=== PATIENT | female | born 1955 | race Caucasian/White ===

== ENCOUNTER 2020-05-13 16:16 | Outpatient (REF) | payer OTHER, SELFPAY | END 2020-05-13 16:17 | disposition home or self-care (01) | LOC: HO.LAB 16:16 | PROVIDERS: PCP Nurse Practitioner Family; Visit Provider Internal Medicine | DX: Z20.828 Contact with and (suspected) exposure to other viral communicable diseases (principal) | CPT/HCPCS: 87635 ==

== ENCOUNTER → 2020-08-26 10:36 | Outpatient (BNVA) | payer OTHER, SELFPAY | PROVIDERS: PCP Internal Medicine; Referring Provider Nurse Practitioner Family; Visit Provider Obstetrics & Gynecology ==

== ENCOUNTER 2020-10-19 07:58 | Outpatient (REF) | payer OTHER, SELFPAY ==
--- NOTE | ~2020-10-19 | MM_ITS ---
EXAMINATION: MM SCREENING DIGITAL BREAST TOMOSYNTHESIS, BILATERAL CLINICAL INFORMATION: Screening. Asymptomatic. The lifetime risk of breast cancer based on the Tyrer-Cuzick Model is 9.2%. COMPARISON: Mammography: August 05, 2019 and studies dating back to October 16, 2011 TECHNIQUE: Digital breast tomosynthesis is performed in both the craniocaudal and mediolateral oblique views along with computer-aided detection (CAD). Synthesized 2D images are generated from the tomosynthesis. FINDINGS: There are scattered areas of fibroglandular density (ACR BI-RADS breast composition Category b). There are no significant masses, abnormal calcifications, or other abnormalities. MM/MM tomosynthesis screening BI IMPRESSION: There are no significant changes from prior study. ASSESSMENT: BI-RADS 1: Negative RECOMMENDATION: Routine annual mammography screening. This patient's information was entered into a reminder system with a target due date for their next mammogram.
== END 2020-10-19 07:59 | disposition home or self-care (01) ==
LOC: HO.MAMMO 07:58
PROVIDERS: PCP Nurse Practitioner Family; Visit Provider Nurse Practitioner Family
DX: Z12.31 Encounter for screening mammogram for malignant neoplasm of breast (principal)
CPT/HCPCS: 77063; 77067

== ENCOUNTER 2021-11-06 09:48 | Outpatient (REF) | payer MEDICARE, MEDICAID, SELFPAY ==
--- NOTE | ~2021-11-06 | MM_ITS ---
EXAMINATION: MM SCREENING DIGITAL BREAST TOMOSYNTHESIS, BILATERAL CLINICAL INFORMATION: Screening. Asymptomatic. The lifetime risk of breast cancer based on the Tyrer-Cuzick Model is 7%. COMPARISON: Mammography: 10/19/2020, 08/05/2019, 03/28/2018, 03/01/2017 TECHNIQUE: Digital breast tomosynthesis is performed in both the craniocaudal and mediolateral oblique views along with computer-aided detection (CAD). Synthesized 2D images are generated from the tomosynthesis. FINDINGS: There are scattered areas of fibroglandular density (ACR BI-RADS breast composition Category b). There are no significant masses, abnormal calcifications, or other abnormalities. Parenchymal pattern is similar to prior studies. There are scattered shifting fibroglandular parenchymal densities overall similar to prior studies. The axilla and skin contours are unremarkable. MM/MM tomosynthesis screening BI IMPRESSION: No mammographic evidence of malignancy. ASSESSMENT: BI-RADS 1: Negative RECOMMENDATION: Routine annual mammography screening. This patient's information was entered into a reminder system with a target due date for their next mammogram.
== END 2021-11-06 09:49 | disposition home or self-care (01) ==
LOC: HO.MAMMO 09:48
PROVIDERS: Visit Provider Nurse Practitioner Family
DX: Z12.31 Encounter for screening mammogram for malignant neoplasm of breast (principal)
CPT/HCPCS: 77063; 77067

== ENCOUNTER 2022-03-16 08:45 | Outpatient (REF) | payer MEDICARE, MEDICAID, SELFPAY ==
--- NOTE | 2022-03-16 14:43 | MHC.AU.MED ---
Medical Clearance for Hearing Instrumentation Date: 03/16/22 Patient Name: Shikha Mcdonough Date of : 1955 Primary Care Provider: Referring Provider: Michelle Milian NP We have seen your patient on 03/16/22 and have determined that they are a candidate for amplification (See accompanying report). Specifically, they would benefit from: Hearing aid use in both ears There is a statute that addresses Medical Evaluation Requirements prior to fitting a patient with a hearing aid. According to [place] statute 265 CMR:6.03(1), (a) General. Except as provided in 265 CMR 6.03(1)(b), a watch crystal molder shall not sell a hearing aid unless the prospective user has presented to the watch crystal molder a written statement signed by a licensed physician that states that the patient's hearing loss has been medically evaluated and the patient may be considered a candidate for a hearing aid. The medical evaluation must have taken place within the preceding six months. Please note: Due to the [place] Statute referenced above, we cannot accept a signature other than that of a licensed physician. CHEMICAL INSTRUMENTATION OFFICER and PA signatures cannot be accepted. I am in agreement with the above recommendation. There is no medical contraindication for hearing instrumentation. Physician Signature Date Physician Name (Printed)
--- NOTE | 2022-03-20 12:58 | MHC.AU.ANO ---
Adult Audiological Evaluation Date of Visit: 03/16/22 Detasseler Used: Not Applicable Reason for Appointment: Shikha was referred for an audiologic evaluation due to increased hearing difficulties. Shikha reports she frequently asks for people to repeat what was said, particularly since people needed to start wearing face masks. Does patient feel they have a hearing loss?: Yes If Yes, Which Ear?: Both Ears When Was Hearing Difficulty First Noticed?: 2 years ago Has hearing been tested previously?: No Hearing Handicap Inventory: HHIE SCORE: 24 Based on HHIE score, patient has: Mild to moderate perceived hearing handicap Ear History: Ear used on the phone: Right Ear History of occupational noise exposure?: No History: No Medical History: Medical History: Thyroid Disease Medical History: Eye condition which requires Methotrexate injection, Medication List: Methotrexate, Levoxyl, Celebrex, Folic Acid Otoscopy: Right Ear: Unremarkable Left Ear: Unremarkable Tympanometry: Tympanometry performed due to: To assess integrity of the middle ear system Right Ear: Normal Middle Ear System (Type A) Left Ear: Normal Middle Ear System (Type A) Otoacoustic Emissions Frequency Range Used: 1.6-8 kHz Right Ear Results: Absent Emissions Analysis: Reduced/Absent emissions suggest cochlear dysfunction Left Ear Results: Absent Emissions Analysis: Reduced/Absent emissions suggest cochlear dysfunction Hearing Evaluation: Transducer(s) Used: Insert Earphones Bone Conduction Method: Conventional Audiometry Stimuli Used: Pure Tones Right Ear: Description of Hearing: Borderline normal hearing thresholds at 250 Hz, sloping to a moderately-severe high frequency sensorineural hearing loss Left Ear: Description of Hearing: Borderline normal hearing thresholds at 250 Hz, sloping to a moderately-severe high frequency sensorineural hearing loss Speech Recognition Threshold (SRT): Method Used: Monitored Live Voice Stimuli Used: Spondee Words Right Ear: 35 dB HL Left Ear: 35 dB HL Word Discrimination: Method: Recorded Lists Word Lists Used: NU-6 Right Ear: 92% at 75 dB HL Left Ear: 80% at 75 dB HL Interpretation of Results: Results indicate Shikha to have a significant high frequency hearing loss for both ears which causes her to not hear many sounds of speech and decreases her ability to understand speech. Based on the test results and Shikha's reported difficulties, binaural hearing aids are recommended. Recommendations: Trial with binaural amplification is recommended. Medical clearance from a physician is required before fitting. Hearing Aid Fitting will be scheduled when all materials arrive. Audiological re-evaluation in one year. Diagnosis: Primary Diagnosis: H90.3 Bilateral Sensorineural Hearing Loss Services Performed: Comprehensive Audiological Evaluation (CPT 36200) Diagnostic Otoacoustic Emissions (CPT 52214, 26+TC) Tympanometry (CPT 80687) Signature: Provider: Saray Cm, [facility]
--- NOTE | 2022-03-30 07:09 | MHC.AU.MED ---
Medical Clearance for Hearing Instrumentation Date: 03/20/22 Patient Name: Shikha Mcdonough Date of : 1955 Primary Care Provider: Referring Provider: Michelle Milian NP We have seen your patient on 03/20/22 and have determined that they are a candidate for amplification (See accompanying report). Specifically, they would benefit from: Hearing aid use in both ears There is a statute that addresses Medical Evaluation Requirements prior to fitting a patient with a hearing aid. According to [place] statute 265 CMR:6.03(1), (a) General. Except as provided in 265 CMR 6.03(1)(b), a teacher of the deaf/hard of hearing shall not sell a hearing aid unless the prospective user has presented to the teacher of the deaf/hard of hearing a written statement signed by a licensed physician that states that the patient's hearing loss has been medically evaluated and the patient may be considered a candidate for a hearing aid. The medical evaluation must have taken place within the preceding six months. Please note: Due to the [place] Statute referenced above, we cannot accept a signature other than that of a licensed physician. BILLING CUSTOMER SERVICE REPRESENTATIVE and PA signatures cannot be accepted. I am in agreement with the above recommendation. There is no medical contraindication for hearing instrumentation. Physician Signature Date Physician Name (Printed)
--- NOTE | 2022-03-30 07:27 | MHC.AU.HAS ---
Hearing Aid Evaluation Date of Visit: 03/16/22 Historical Information: Description of Hearing: Borderline normal low frequency, sloping to moderately-severe high frequency sensorineural hearing loss bilaterally. Current personal amplification information, if applicable: NONE Summary: Based on the degree of hearing loss and Shikha's reported and significant difficulty understanding speech, binaural hearing aids are recommended for improved communication. Hearing Aid Prescription: Based on the individual?s shared listening needs, communication environments, dexterity, desire for connectivity, and personal preferences, the following prescription for amplification has been made: Right ear: Pipe Inspector: Phonak Model: SoCore Energyeo P 70-R Battery Size: Rechargeable Color: Sand Beige Wildlife Forensic Geneticist: #2 M Type of Mold: Phonak Canal C-Shell Left ear:Left ear prescription to be same as Right Hearing Aid above: Pipe Inspector: Phonak Model: SoCore Energyeo P 70-R Battery Size: Rechargeable Color: Sand Beige Wildlife Forensic Geneticist: #2 M Type of Mold: Phonak Canal C-Shell Plan of Care: Patient wishes to purchase hearing aids as prescribed Action Taken/Action Needed:Earmold Impressions Taken Medical Clearance to be requested from PCP/ENT Hearing Instrument Fitting to be scheduled when materials arrive Primary Diagnosis: H90.3 Bilateral Sensorineural Hearing Loss Signature:Provider: Luigi Cm, [facility]
== END 2022-03-16 08:46 | disposition home or self-care (01) ==
LOC: HO.SH 08:45
PROVIDERS: Visit Provider Nurse Practitioner Family
DX: Z01.118 Encounter for examination of ears and hearing with other abnormal findings (principal); Z46.1 Encounter for fitting and adjustment of hearing aid; H90.3 Sensorineural hearing loss, bilateral
CPT/HCPCS: 92557; 92567; 92588; 92591; V5275

== ENCOUNTER 2022-05-11 09:19 | Outpatient (REF) | payer MEDICARE, MEDICAID, SELFPAY ==
--- NOTE | 2022-05-11 11:31 | MHC.AU.HFA ---
Hearing Instrument Fitting- Adult- Binaural Date of Visit: 05/11/22 Hearing Instruments Dispensed: Right Ear: Phonak Audeo P70-R SN: [id number] Color: Sand beige Repair Warranty: 07/17/25 Loss and Damage Warranty: 07/17/25 Service Plan: 05/11/2023 Battery Size: Rechargeable Residential Door Unit Installer: 1M Type of Mold: Canal C-Shell SN: [id number] Aaron: 07/18/2022 Type of Wax Guard: CeruStop Left Ear: Phonak Audeo P70-R SN: [id number] Color: Sand beige Repair Warranty: 07/17/2025 Loss and Damage Warranty: 07/17/2025 Service Plan: 05/11/2023 Battery Size: Rechargeable Residential Door Unit Installer: 1M Type of Mold: Canal C-Shell SN: [id number] Aaron: 07/18/2022 Type of Wax Guard: CeruStop Summary of Fitting: Shikha returned for a hearing aid fitting. Feedback assistant department manager and real ear measurements were performed. Gain level then set to 80% due to perceived loudness. Discussed care, use, and maintenance including charging, manually turning on/off, volume control, cleaning, and changing the wax guard. Practiced insertion and removal. Shikha had some difficulty inserting the ear molds but is motivated to practice. Explained acclimatization period and importance of consistent use. Shikha was grateful to have the hearing aids and seemed motivated to use them daily. Shikha did not want to pair the hearing aids to her cell phone at this time. Recommendations: A hearing instrument follow-up was scheduled. Please call our clinic with any questions or concerns. Maintain consistent use of binaural amplification. Diagnosis Code(s): Primary Diagnosis: H90.3 Bilateral Sensorineural Hearing Loss Signature: Provider: Eva Smith, [facility]
== END 2022-05-11 09:20 | disposition home or self-care (01) ==
LOC: HO.HAP 09:19
PROVIDERS: Visit Provider Internal Medicine
DX: Z46.1 Encounter for fitting and adjustment of hearing aid (principal); H90.3 Sensorineural hearing loss, bilateral
CPT/HCPCS: V5011; V5020; V5160; V5261; V5264

== ENCOUNTER 2022-05-28 10:18 | Outpatient (REF) | payer MEDICARE, MEDICAID, SELFPAY ==
--- NOTE | 2022-05-28 10:51 | MHC.AU.HFU ---
Hearing Instrument Follow-Up- Binaural Date of Visit: 05/28/22 Right Ear: Kedar Meyerseo P70-R SN: [id number] Color: Sand beige Repair Warranty: 07/17/25 Loss and Damage Warranty: 07/17/25 Service Plan: 05/11/2023 Battery Size: Rechargeable Rocket Scientist: 1M Type of Mold: Canal C-Shell SN: [id number] Aaron: 07/18/2022 Type of Wax Guard: CeruStop Dispensed By: [facility] Date of Fittin05/11/2022 Left Ear: Kedar Meyerseo P70-R SN: [id number] Color: Sand beige Repair Warranty: 07/17/2025 Loss and Damage Warranty: 07/17/2025 Service Plan: 05/11/2023 Battery Size: Rechargeable Rocket Scientist: 1M Type of Mold: Canal C-Shell SN: [id number] Aaron: 07/18/2022 Type of Wax Guard: CeruStop Dispensed By: [facility] Date of Fittin05/11/2022 Follow-Up Summary: Shikha reported that she loves her hearing aids. Data logging about 9 hours/day. No programming adjustments at this time as Shikha is happy with overall sound quality and perceived benefit. Advised at 80% gain level and can increase in the future for maximum benefit. Much better at insertion. Reviewed volume control use. Otherwise doing well with no other questions/concerns. Recommendations: Hearing instrument maintenance in 6 months, or sooner if needed. Please contact our clinic with any questions or concerns. Diagnosis Code(s): Primary Diagnosis: H90.3 Bilateral Sensorineural Hearing Loss Signature: Provider: Eva Smith, [facility]
== END 2022-05-28 10:19 | disposition home or self-care (01) ==
LOC: HO.HAP 10:18
PROVIDERS: Visit Provider Nurse Practitioner Family
DX: Z13.89 Encounter for screening for other disorder (principal)

== ENCOUNTER 2022-11-27 12:40 | Outpatient (REF) | payer MEDICARE, MEDICAID, SELFPAY ==
--- NOTE | 2022-11-27 13:28 | MHC.AU.HFU ---
Hearing Instrument Follow-Up- Binaural Date of Visit: 11/27/22 Right Ear: Kedar Meyerseo P70-R SN: [id number] Color: Sand beige Repair Warranty: 07/17/25 Loss and Damage Warranty: 07/17/25 Service Plan: 05/11/2023 Battery Size: Rechargeable Color: Sand Beige Tavern Operator: 1M Type of Mold: Canal C-Shell SN: [id number] Aaron: 07/18/2022 Type of Wax Guard: CeruStop Dispensed By: [facility] Date of Fittin05/11/2022 Left Ear: Kedar Meyerseo P70-R SN: [id number] Color: Sand beige Repair Warranty: 07/17/2025 Loss and Damage Warranty: 07/17/2025 Service Plan: 05/11/2023 Battery Size: Rechargeable Color: Sand Beige Tavern Operator: 1M Type of Mold: Canal C-Shell SN: [id number] Aaron: 07/18/2022 Type of Wax Guard: CeruStop Dispensed By: [facility] Date of Fittin05/11/2022 Follow-Up Summary: Shikha Mcdonough is here today for a hearing aid check. Overall Shikha is very happy with her hearing aids and notes improved hearing with them. Today she would like to review hearing aid cleaning, use of volume control and how to manually power off the hearing aids. Visual inspection revealed the wax guards were missing. I reviewed how to replace the wax guards and we practiced in office. I provided Shikha with a brush and microfiber cloth to use periodically to clean off the hearing aids. I then showed her how to manually power off the hearing aids with the volume down button. In [employer] I ensured volume control was enabled and we practiced using the volume control. Of note Shikha continues to be on 80% target gain and she finds that comfortable. She does not wish to have the gain increased. I reminded her that her previous audiogram is from 02/2022. An updated audiogram is recommended when change is noted. Additional follow-up when concerns arise. Diagnosis Code(s): Primary Diagnosis: H90.3 Bilateral Sensorineural Hearing Loss Signature: Provider: Saray Yee, [facility]
== END 2022-11-27 12:41 | disposition home or self-care (01) ==
LOC: HO.HAP 12:40
PROVIDERS: Visit Provider Nurse Practitioner Family
DX: Z13.89 Encounter for screening for other disorder (principal)

== ENCOUNTER → 2023-01-08 13:11 | Outpatient (BNVA) | payer MEDICARE, MEDICAID, SELFPAY | PROVIDERS: PCP Nurse Practitioner Family; Visit Provider Hospitalist | DX: J41.1 Mucopurulent chronic bronchitis (principal); R05.3 Chronic cough; R06.00 Dyspnea, unspecified | CPT/HCPCS: 94640; 99202 ==

== ENCOUNTER 2023-02-04 09:40 | Outpatient (REF) | payer MEDICARE, MEDICAID, SELFPAY ==
--- NOTE | ~2023-02-04 | MM_ITS ---
EXAMINATION: MM SCREENING DIGITAL BREAST TOMOSYNTHESIS, BILATERAL CLINICAL INFORMATION: Screening. Asymptomatic. The lifetime risk of breast cancer based on the Tyrer-Cuzick Model is 7%. COMPARISON: Mammography: This study is compared with prior exams dating back to 2018. TECHNIQUE: Digital breast tomosynthesis is performed in both the craniocaudal and mediolateral oblique views along with computer-aided detection (CAD). Synthesized 2D images are generated from the tomosynthesis. FINDINGS: There are scattered areas of fibroglandular density (ACR BI-RADS breast composition Category b). There are no significant masses, abnormal calcifications, or other abnormalities. MM/MM tomosynthesis screening BI IMPRESSION: No mammographic evidence of malignancy. ASSESSMENT: BI-RADS BI-RADS 1 - Negative RECOMMENDATION: Routine annual mammography screening. 1 year F/U This examination should not preclude the clinical evaluation of a suspicious palpable abnormality. This patient's information was entered into a reminder system with a target due date for their next mammogram.
== END 2023-02-04 09:41 | disposition home or self-care (01) ==
LOC: HO.MAMMO 09:40
PROVIDERS: PCP Nurse Practitioner Family; Visit Provider Nurse Practitioner Family
DX: Z12.31 Encounter for screening mammogram for malignant neoplasm of breast (principal)
CPT/HCPCS: 77063; 77067

== ENCOUNTER → 2023-02-04 10:00 | Outpatient (BNV) | payer MEDICARE, MEDICAID, SELFPAY | PROVIDERS: PCP Nurse Practitioner Family; Visit Provider Radiology Diagnostic Radiology | DX: Z12.31 Encounter for screening mammogram for malignant neoplasm of breast (principal) | CPT/HCPCS: 77063; 77067 ==

== ENCOUNTER 2023-03-19 12:58 | Outpatient (AMB) | payer MEDICARE, SELFPAY ==
--- NOTE | 2023-03-19 13:15 | MHC.OFFVIS ---
Intake Vital Signs 03/19/23 13:16 Height 5 ft 10 in Weight 243 lb 9.773 oz BMI 35.0 Pulse 85 Pulse Source Pulse Oximeter Pulse Oximetry (%) 94 Oxygen Delivery Method Room Air Intake Visit Reasons: Cough Fabric Sourcer Required: No Allergies Tetanus Vaccines and Toxoid [TETANUS] Allergy (Severe, Unverified 03/19/23 13:17) ARM TURNED BLACK HPI HPI Comments History of Present Illness Details The patient is 67 year woman former smoker presenting with worsening cough and shortness of breath. The patient states that she was in usual state health until about 7 months ago. She was being evaluated for a hiatal hernia. She has been smoking all the time. She was sent to Cardiology for evaluation. At that point she decided to quit smoking. She has not smoked since. She did undergo her surgery without complications. However, after surgery she noticed that her cough and shortness of breath became worse. She was given a rescue albuterol inhaler that was partially helpful. She has been using the inhaler several times a day. Symptoms tend to be all the time but worse at nighttime. She has a hard time expectorating. She has noted some yellowish in her sputum. She did undergo a chest x-ray which I personally reviewed demonstrating some increased ill-defined opacities at the bases suggesting some degree of chronic bronchitis or bronchitis bilaterally. She also had a CT scan of the chest from her lung cancer screening program that she is participating at [facility] which demonstrates some evidence of chronic bronchitis mosaic pattern and a low bit of emphysema as well. The patient also has pulmonary nodules have been followed. In the office she does have significant wheezing and rhonchi. I did give her a DuoNeb treatment. Hopefully she can feel better. 03/19/2023 the patient is here for pulmonary follow-up visit. The patient continues to struggle with her breathing. Still having significant chest congestion and wheezing. Complains of shortness of breath with activity. Moderate severity. She did take the prednisone twice 1 for her breathing 1 for her back and that improved her breathing significantly. She also complete the antibiotics. The patient did have a recent CT scan of the lung cancer screening program at [facility] which is reassuring with a rads 2. She will get another CT scan in a year's time. Overall her breathing is better although stopping significant wheezing and chest tightness. I do believe she needs better chest physical therapy. Will start her on budesonide and DuoNeb twice a day. Also provide her with an Acapella for chest PT and bronchopulmonary hygiene. The patient will also start Daliresp to minimize her prednisone use. If the patient has any issues she will call the office otherwise to follow-up in 3 months time. [facility] Medical History (Updated 01/08/23 @ 22:23 by Bhavin Quan MD) Chronic cough COPD (chronic obstructive pulmonary disease) Dyspnea GERD (gastroesophageal reflux disease) High cholesterol Thyroid nodule Surgical History History of bunionectomy History of tubal ligation Family History Father Colon cancer Mother Hypertension Kidney stones Paternal Grandfather Heart attack Social History (Updated 01/08/23 @ 13:31 by Shantelle Barber Errol) Alcohol intake: never Patient Tobacco Use Status: Former Tobacco user Tobacco use type: Cigarette Years Smoked: 45 Years Sexual orientation: Straight/Heterosexual Gender identity: Female Review of Systems Const Denies fever(s) Eyes Denies change in vision ENT Reports nasal congestion Card Denies chest pain and Reports dyspnea on exertion Resp Reports chest congestion, Reports cough, Denies hemoptysis, Reports dyspnea on exertion and Reports wheezing GI Reports no additional complaints Musc Reports no additional complaints Skin/Breast Denies rash Neuro Reports no additional complaints Howie/Lymph Denies easy bleeding, Denies easy bruising, Denies lymphadenopathy and Reports other Aller/Immun Reports wheezing Physical Exam Vital Signs: Last Vital Signs Pulse 85 03/19/23 13:16 Pulse Ox 94 03/19/23 13:16 Oxygen Delivery Method Room Air 03/19/23 13:16 BMI result Body Mass Index 35.0 Const General: comfortable Orientation/consciousness: patient oriented x3 HEENT Head: Yes normocephalic Neck Neck: Yes supple Chest Chest palpation & inspection: normal inspection of the chest Resp Effort & Inspection: normal respiratory effort and prolonged expiratory phase Auscultation: rhonchi and wheezes Cardio Rate: regular rate Rhythm: regular rhythm Heart sounds: S1 normal heart sound present and S2 normal heart sound present GI Palpation (GI): Soft to palpation Neuro General: patient oriented x3 Extrem General: Yes no clubbing, cyanosis or edema Assessment & Plan Assessment & Plan (1) COPD (chronic obstructive pulmonary disease): Code(s): J44.9 - Chronic obstructive pulmonary disease, unspecified Qualifiers: COPD type: chronic bronchitis Chronic bronchitis type: mucopurulent Qualified Code(s): J41.1 - Mucopurulent chronic bronchitis (2) Chronic cough: Code(s): R05.3 - Chronic cough (3) Dyspnea: Code(s): R06.00 - Dyspnea, unspecified Plan stop Advair HFA start nebulizer BID start budesonide .5mg via neb BID start Duoneb via neb BID start CPT with acapella valve start Dalirep 250mcg NOEL as needed [facility]CT at [facility] 2 F/U 3-4 months Medications: New budesonide 0.5 mg (2 mL) inhalation BID 30 days 120 mL 11RF J44.9 - Chronic obstructive pulmonary disease, unspecified ipratropium-albuterol 0.5 mg-3 mg(2.5 mg base)/3 mL 3 mL inhalation BID 30 days 180 mL 11RF J44.9 - Chronic obstructive pulmonary disease, unspecified roflumilast (Daliresp) 250 mcg PO DAILY 30 days 30 tabs 11RF J44.9 - Chronic obstructive pulmonary disease, unspecified Coding Level of Care Code Est Pt Level 4 (18352) Diagnoses COPD (chronic obstructive pulmonary disease) J41.1 COPD type: chronic bronchitis Chronic bronchitis type: mucopurulent Chronic cough R05.3 Dyspnea R06.00 Time Spent (min) 19
[2023-03-19 13:16] VITALS: PULSE 85; O2SAT 94; BMI 35.0
== END 2023-03-19 13:41 | disposition home or self-care (01) ==
PROVIDERS: PCP Nurse Practitioner Family; Visit Provider Hospitalist
DX: J41.1 Mucopurulent chronic bronchitis (principal); R05.3 Chronic cough; R06.00 Dyspnea, unspecified
CPT/HCPCS: 99214

== ENCOUNTER → 2023-03-19 12:58 | Outpatient (BNVA) | payer MEDICARE, SELFPAY | PROVIDERS: PCP Nurse Practitioner Family; Visit Provider Hospitalist | DX: J41.1 Mucopurulent chronic bronchitis (principal); R05.3 Chronic cough; R06.00 Dyspnea, unspecified | CPT/HCPCS: 99212 ==

== ENCOUNTER 2023-08-08 13:36 | Outpatient (AMB) | payer MEDICARE, SELFPAY ==
[2023-08-08 13:44] VITALS: PULSE 69; O2SAT 97; BMI 33.0
--- NOTE | 2023-08-08 13:44 | MHC.OFFVIS ---
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 The patient states that she was in usual state health until about 7 months ago. She was being evaluated for a hiatal hernia. She has been smoking all the time. She was sent to Cardiology for evaluation. At that point she decided to quit smoking. She has not smoked since. She did undergo her surgery without complications. However, after surgery she noticed that her cough and shortness of breath became worse. She was given a rescue albuterol inhaler that was partially helpful. She has been using the inhaler several times a day. Symptoms tend to be all the time but worse at nighttime. She has a hard time expectorating. She has noted some yellowish in her sputum. She did undergo a chest x-ray which I personally reviewed demonstrating some increased ill-defined opacities at the bases suggesting some degree of chronic bronchitis or bronchitis bilaterally. She also had a CT scan of the chest from her lung cancer screening program that she is participating at [facility] which demonstrates some evidence of chronic bronchitis mosaic pattern and a low bit of emphysema as well. The patient also has pulmonary nodules have been followed. In the office she does have significant wheezing and rhonchi. I did give her a DuoNeb treatment. Hopefully she can feel better. 03/19/2023 the patient is here for pulmonary follow-up visit. The patient continues to struggle with her breathing. Still having significant chest congestion and wheezing. Complains of shortness of breath with activity. Moderate severity. She did take the prednisone twice 1 for her breathing 1 for her back and that improved her breathing significantly. She also complete the antibiotics. The patient did have a recent CT scan of the lung cancer screening program at [facility] which is reassuring with a rads 2. She will get another CT scan in a year's time. Overall her breathing is better although stopping significant wheezing and chest tightness. I do believe she needs better chest physical therapy. Will start her on budesonide and DuoNeb twice a day. Also provide her with an Acapella for chest PT and bronchopulmonary hygiene. The patient will also start Daliresp to minimize her prednisone use. If the patient has any issues she will call the office otherwise to follow-up in 3 months time. 08/08/2023 the patient is here for a pulmonary follow-up visit. Overall her breathing is better overall. She still having chest congestion though she still having some wheezing on examination. We have started her on the budesonide nebulized therapy but it resulted in a an irritation to the oral mucosa. She still has the irritation even after a few months. It bautista her and bothers her when she eats something spicy. And is irritated to the lung. Therefore, she has not taking any inhaled steroids. She is tolerating the Daliresp 250 mcg. However yes she continues to have chest congestion and rhonchi on examination. Therefore will optimize respiratory therapy by increasing her Daliresp up to 500 mcg. The patient also will be sent albuterol that she can use her nebulizer for mucus clearance and bronchopulmonary hygiene. The patient also will start therapy for her oral lesions. I am hopeful that they improved. Once she completes the therapy for her oral lesions if the patient is not any better from a respiratory status she can always call him concerned her a course of azithromycin for macrolide suppression therapy. [facility] Medical History (Updated 08/08/23 @ 21:55 by Bhavin Quan MD) Lesion of mouth Dyspnea Chronic cough COPD (chronic obstructive pulmonary disease) Thyroid nodule High cholesterol GERD (gastroesophageal reflux disease) Surgical History History of bunionectomy History of tubal ligation Family History Father Colon cancer Mother Hypertension Kidney stones Paternal Grandfather Heart attack Social History (Updated 01/08/23 @ 13:31 by ANUSHA Farris) Alcohol intake: never Patient Tobacco Use Status: Former Tobacco user Tobacco use type: Cigarette Years Smoked: 45 Years Sexual orientation: Straight/Heterosexual Gender identity: Female Review of Systems Const Denies fever(s) Eyes Denies change in vision ENT Reports mouth lesions, Reports mouth pain and Reports nasal congestion Card Denies chest pain and Reports dyspnea on exertion Resp Reports chest congestion, Reports cough, Denies hemoptysis, Reports dyspnea on exertion and Reports wheezing GI Reports no additional complaints Musc Reports no additional complaints Skin/Breast Denies rash Neuro Reports no additional complaints Howie/Lymph Denies easy bleeding, Denies easy bruising, Denies lymphadenopathy and Reports other Aller/Immun Reports wheezing Physical Exam Vital Signs: Last Vital Signs Pulse 69 08/08/23 13:44 Pulse Ox 97 08/08/23 13:44 Oxygen Delivery Method Room Air 08/08/23 13:44 BMI result Body Mass Index 33.0 Const General: comfortable Orientation/consciousness: patient oriented x3 HEENT Head: Yes normocephalic Mouth: Abnormal oral and palatal mucosa present lesions and ulceration Neck Neck: Yes supple Chest Chest palpation & inspection: normal inspection of the chest Resp Effort & Inspection: normal respiratory effort and prolonged expiratory phase Auscultation: rhonchi and wheezes Cardio Rate: regular rate Rhythm: regular rhythm Heart sounds: S1 normal heart sound present and S2 normal heart sound present GI Palpation (GI): Soft to palpation Neuro General: patient oriented x3 Extrem General: Yes no clubbing, cyanosis or edema Assessment & Plan Assessment & Plan (1) COPD (chronic obstructive pulmonary disease): Code(s): J44.9 - Chronic obstructive pulmonary disease, unspecified Qualifiers: COPD type: chronic bronchitis Chronic bronchitis type: mucopurulent Qualified Code(s): J41.1 - Mucopurulent chronic bronchitis (2) Chronic cough: Code(s): R05.3 - Chronic cough (3) Dyspnea: Code(s): R06.00 - Dyspnea, unspecified Qualifiers: Dyspnea type: dyspnea on exertion Qualified Code(s): R06.09 - Other forms of dyspnea (4) Lesion of mouth: Comment: Likely secondary to budesonide Code(s): K13.70 - Unspecified lesions of oral mucosa Plan holding Advair HFA continue nebulizer BID stop budesonide .5mg via neb BID start albuterol via neb BID start CPT with acapella valve Increase Dalirep 500mcg NOEL as needed Fluconazole Magic mouthwash LDCT at [facility] RADS 2 F/U 2-3 months Medications: New fluconazole 100 mg PO DAILY 10 days 10 tabs 0RF Magic Mouthwash Diphen/Lido/Antacid 1:1:1 Lidocaine Viscous 2 % 80mL; diphenhydramine 12.5 mg/5 mL 80mL; aluminum-mag hydrox-simeth [id number]/5mL 80mL 5 mL PO TID 14 days PRN 240 mL 3RF mouth irritation roflumilast (Daliresp) 500 mcg PO DAILY 30 days 30 tabs 6RF albuterol sulfate 2.5 mg (3 mL) inhalation BID 30 days 180 mL 11RF J44.9 - Chronic obstructive pulmonary disease, unspecified Discontinued roflumilast (Daliresp) Discontinued Reason: Doctor's Order 250 mcg PO DAILY 30 days 30 tabs 11RF J44.9 - Chronic obstructive pulmonary disease, unspecified Coding Level of Care Code Est Pt Level 4 (71804) Diagnoses Mucopurulent chronic bronchitis J41.1 COPD type: chronic bronchitis Chronic bronchitis type: mucopurulent Chronic cough R05.3 Dyspnea on exertion R06.09 Dyspnea type: dyspnea on exertion Lesion of mouth K13.70 Time Spent (min) 17
== END 2023-08-08 14:23 | disposition home or self-care (01) ==
PROVIDERS: PCP Nurse Practitioner Family; Visit Provider Hospitalist
DX: J41.1 Mucopurulent chronic bronchitis (principal); R05.3 Chronic cough; R06.09 Other forms of dyspnea; K13.70 Unspecified lesions of oral mucosa
CPT/HCPCS: 99214

== ENCOUNTER → 2023-08-08 13:36 | Outpatient (BNVA) | payer MEDICARE, SELFPAY | PROVIDERS: PCP Nurse Practitioner Family; Visit Provider Hospitalist | DX: J41.1 Mucopurulent chronic bronchitis (principal); K13.70 Unspecified lesions of oral mucosa; R05.3 Chronic cough; R06.09 Other forms of dyspnea | CPT/HCPCS: 99212 ==

== ENCOUNTER 2023-10-11 09:48 | Outpatient (AMB) | payer MEDICARE, SELFPAY ==
--- NOTE | 2023-10-11 09:56 | A.OFFVIS_ITS ---
Intake Vital Signs 10/11/23 09:58 Height 5 ft 10 in Weight 235 lb BMI 33.7 BP 110/62 Blood Pressure Location Lt brachial Position Sitting Pulse 59 Pulse Source Pulse Oximeter Pulse Oximetry (%) 98 Oxygen Delivery Method Room Air Intake Visit Reasons: Asthma Marketing Support Specialist Required: No Allergies Tetanus Vaccines and Toxoid [TETANUS] Allergy (Severe, Unverified 10/11/23 10:02) ARM TURNED BLACK HPI HPI Comments History of Present Illness Details The patient is 68 year woman former smoker presenting with worsening cough and shortness of breath. The patient states that she was in usual state health until about 7 months ago. She was being evaluated for a hiatal hernia. She has been smoking all the time. She was sent to Cardiology for evaluation. At that point she decided to quit smoking. She has not smoked since. She did undergo her surgery without complications. However, after surgery she noticed that her cough and shortness of breath became worse. She was given a rescue albuterol inhaler that was partially helpful. She has been using the inhaler several times a day. Symptoms tend to be all the time but worse at nighttime. She has a hard time expectorating. She has noted some yellowish in her sputum. She did undergo a chest x-ray which I personally reviewed demonstrating some increased ill-defined opacities at the bases suggesting some degree of chronic bronchitis or bronchitis bilaterally. She also had a CT scan of the chest from her lung cancer screening program that she is participating at [facility] which demonstrates some evidence of chronic bronchitis mosaic pattern and a low bit of emphysema as well. The patient also has pulmonary nodules have been followed. In the office she does have significant wheezing and rhonchi. I did give her a DuoNeb treatment. Hopefully she can feel better. 03/19/2023 the patient is here for pulmon caterina follow-up visit. The patient continues to struggle with her breathing. Still having significant chest congestion and wheezing. Complains of shortness of breath with activity. Moderate severity. She did take the prednisone twice 1 for her breathing 1 for her back and that improved her breathing significantly. She also complete the antibiotics. The patient did have a recent CT scan of the lung cancer screening program at [facility] which is reassuring with a rads 2. She will get another CT scan in a year's time. Overall her breathing is better although stopping significant wheezing and chest tightness. I do believe she needs better chest physical therapy. Will start her on budesonide and DuoNeb twice a day. Also provide her with an Acapella for chest PT and bronchopulmonary hygiene. The patient will also start Daliresp to minimize her prednisone use. If the patient has any issues she will call the office otherwise to follow-up in 3 months time. 08/08/2023 the patient is here for a pulm onary follow-up visit. Overall her breathing is better overall. She still having chest congestion though she still having some wheezing on examination. We have started her on the budesonide nebulized therapy but it resulted in a an irritation to the oral mucosa. She still has the irritation even after a few months. It bautista her and bothers her when she eats something spicy. And is irritated to the lung. Therefore, she has not taking any inhaled steroids. She is tolerating the Daliresp 250 mcg. However yes she continues to have chest congestion and rhonchi on examination. Therefore will optimize respiratory therapy by increasing her Daliresp up to 500 mcg. The patient also will be sent albuterol that she can use her nebulizer for mucus clearance and bronchopulmonary hygiene. The patient also will start therapy for her oral lesions. I am hopeful that they improved. Once she completes the therapy for her oral lesions if the patient is not any better from a respiratory status she can always call him concerned her a course of azithromycin for macrolide suppression therapy. 10/11/2023 the patient is here for pulmonary follow-up visit. Overall she is doing little better. She still complains of the chest congestion. Ojal-[id number] severity. Wheezing seems to be better. She has not been using nebulizer. She was still getting the ulcerations in the irritations even with the albuterol nebulized therapy. Therefore she has been not using any. She still has a rescue inhaler that she finds helpful. She does not have any adverse reactions to that 1. her cough is still congested. Will try to get a sputum culture. In the meantime will try to minimize inhaler therapy since she has had adverse reactions. She did respond partially to the fluconazole so for will restarted. We can also start her on azithromycin when she completes the fluconazole to treat for the chronic bronchitis. a for sputum demonstrates any other organisms then will have to change her therapy. Will follow-up in 2-3 months. While on the azithromycin she should have an EKG to make sure that her QT interval is stable. [facility] Medical History (Updated 08/08/23 @ 21:55 by Bhavin Quan MD) Lesion of mouth Dyspnea Chronic cough COPD (chronic obstructive pulmonary disease) Thyroid nodule High cholesterol GERD (gastroesophageal reflux disease) Surgical History History of bunionectomy History of tubal ligation Family History Father Colon cancer Mother Hypertension Kidney stones Paternal Grandfather Heart attack Social History Alcohol intake: never Patient Tobacco Use Status: Former Tobacco user Tobacco use type: Cigarette Years Smoked: 45 Years Sexual orientation: Straight/Heterosexual Gender identity: Female Review of Systems Const Denies fever(s) Eyes Denies change in vision ENT Reports mouth lesions, Reports mouth pain and Reports nasal congestion Card Denies chest pain and Reports dyspnea on exertion Resp Reports chest congestion, Reports cough, Denies hemoptysis, Reports dyspnea on exertion and Denies wheezing GI Reports no additional complaints Musc Reports no additional complaints Skin/Breast Denies rash Neuro Reports no additional complaints Howie/Lymph Denies easy bleeding, Denies easy bruising, Denies lymphadenopathy and Reports other Aller/Immun Denies wheezing Physical Exam Vital Signs: Last Vital Signs Pulse 59 10/11/23 09:58 BP 110/62 10/11/23 09:58 Pulse Ox 98 10/11/23 09:58 Oxygen Delivery Method Room Air 10/11/23 09:58 BMI result Body Mass Index 33.7 Const General: comfortable Orientation/consciousness: patient oriented x3 HEENT Head: Yes normocephalic Mouth: Abnormal oral and palatal mucosa present lesions and ulceration Neck Neck: Yes supple Chest Chest palpation & inspection: normal inspection of the chest Resp Effort & Inspection: normal respiratory effort and prolonged expiratory phase Auscultation: no rhonchi and no wheezes Cardio Rate: regular rate Rhythm: regular rhythm Heart sounds: S1 normal heart sound present and S2 normal heart sound present GI Palpation (GI): Soft to palpation Neuro General: patient oriented x3 Extrem General: Yes no clubbing, cyanosis or edema Assessment & Plan Assessment & Plan (1) COPD (chronic obstructive pulmonary disease): Code(s): J44.9 - Chronic obstructive pulmonary disease, unspecified Qualifiers: COPD type: chronic bronchitis Chronic bronchitis type: mucopurulent Qualified Code(s): J41.1 - Mucopurulent chronic bronchitis (2) Chronic cough: Code(s): R05.3 - Chronic cough (3) Dyspnea: Code(s): R06.00 - Dyspnea, unspecified Qualifiers: Dyspnea type: dyspnea on exertion Qualified Code(s): R06.09 - Other forms of dyspnea (4) Lesion of mouth: Comment: Likely secondary to budesonide Code(s): K13.70 - Unspecified lesions of oral mucosa Plan holding Advair HFA albuterol HFA as needed CPT with acapella valve continue Dalirep 500mcg Fluconazole startAzithromycin MWF CXR Magic mouthwash LDCT at [facility] 2 F/U 2-3 months Orders: Orders XR chest 2V 10/11/23 R05.3 - Chronic cough Sputum Cult + Gram stain 10/11/23 R05.3 - Chronic cough ECG 12 lead EKG Today J44.9 - Chronic obstructive pulmonary disease, unspecified Medications: New fluconazole 100 mg PO DAILY 14 tabs 0RF 14 days azithromycin Take 1 tablet on Saturday/Saturday/Saturday 250 mg PO 3XW 12 tabs 1RF 28 days K21.9 - Gastro-esophageal reflux disease without esophagitis Coding Level of Care Code Tele Est Pt Level 4 (21757) Diagnoses Mucopurulent chronic bronchitis J41.1 COPD type: chronic bronchitis Chronic bronchitis type: mucopurulent Chronic cough R05.3 Dyspnea on exertion R06.09 Dyspnea type: dyspnea on exertion Lesion of mouth K13.70 Time Spent (min) 18
[2023-10-11 09:58] VITALS: BP 110/62; PULSE 59; O2SAT 98; BMI 33.7
== END 2023-10-11 10:24 | disposition home or self-care (01) ==
PROVIDERS: PCP Nurse Practitioner Family; Visit Provider Hospitalist
DX: J41.1 Mucopurulent chronic bronchitis (principal); R05.3 Chronic cough; K13.70 Unspecified lesions of oral mucosa
CPT/HCPCS: 99214

== ENCOUNTER → 2023-10-11 09:48 | Outpatient (BNVA) | payer MEDICARE, SELFPAY | PROVIDERS: PCP Nurse Practitioner Family; Visit Provider Hospitalist | DX: J41.1 Mucopurulent chronic bronchitis (principal); R05.3 Chronic cough; R06.09 Other forms of dyspnea; K13.70 Unspecified lesions of oral mucosa; F17.200 Nicotine dependence, unspecified, uncomplicated | CPT/HCPCS: 99212 ==

== ENCOUNTER 2023-10-14 09:33 | Outpatient (REF) | payer MEDICARE, SELFPAY ==
--- NOTE | ~2023-10-14 | XR_ITS ---
EXAMINATION: XR CHEST 2 VIEWS CLINICAL INFORMATION: Chronic cough. COMPARISON: Prior chest radiographs, most recently 02/03/2017. TECHNIQUE: Frontal and lateral views of the chest were obtained. FINDINGS: The heart, great vessels, pulmonary vasculature and mediastinum are normal. The lungs show no focal infiltrate, effusion or pneumothorax. At the lateral right base, there is a small focus of linear scar/subsegmental atelectasis, which is unchanged from 07/07/2010. There is multi-level thoracic spondylosis. There is a kyphoscoliosis. XR/XR chest 2V IMPRESSION: No active cardiopulmonary disease.
--- NOTE | 2023-10-14 09:45 | ECG_ITS ---
Test Reason : copd Blood Pressure : / mmHG Vent. Rate : 057 BPM Atrial Rate : 057 BPM P-R Int : 148 ms QRS Dur : 070 ms QT Int : 420 ms P-R-T Axes : 069 -54 056 degrees QTc Int : 408 ms Sinus bradycardia Low voltage QRS Left anterior fascicular block Cannot rule out Inferior infarct , age undetermined Cannot rule out Anterior infarct , age undetermined Abnormal ECG No previous ECGs available Referred By: Bhavin Quan Electronically Signed By:Rudy Chance
== END 2023-10-14 09:34 | disposition home or self-care (01) ==
LOC: HO.XRAY 09:33
PROVIDERS: PCP Nurse Practitioner Family; Visit Provider Hospitalist
DX: J44.9 Chronic obstructive pulmonary disease, unspecified (principal); R05.3 Chronic cough
CPT/HCPCS: 71046; 87070; 87205; 93005

== ENCOUNTER → 2023-10-14 09:45 | Outpatient (BNV) | payer MEDICARE, SELFPAY | PROVIDERS: PCP Nurse Practitioner Family; Visit Provider Internal Medicine Cardiovascular Disease | DX: J44.9 Chronic obstructive pulmonary disease, unspecified (principal) | CPT/HCPCS: 93010 ==

== ENCOUNTER 2024-04-27 09:32 | Outpatient (AMB) | payer MEDICARE, SELFPAY ==
[2024-04-27 09:48] VITALS: BP 128/70; PULSE 65; O2SAT 97
--- NOTE | 2024-04-27 09:48 | A.OFFVIS_ITS ---
Vital Signs 04/27/24 09:48 Height 5 ft 10 in BMI Reason not done Patient refused/unable BP 128/70 Blood Pressure Location Lt brachial Position Sitting Pulse 65 Pulse Source Pulse Oximeter Pulse Oximetry (%) 97 Oxygen Delivery Method Room Air Intake Visit Reasons: asthma Applications Consultant Required: No Allergies Tetanus Vaccines and Toxoid [TETANUS] Allergy (Severe, Unverified 04/27/24 09:52) ARM TURNED BLACK HPI Comments Details: The patient is 68 year woman former smoker presenting with worsening cough and shortness of breath. The patient states that she was in usual state health until about 7 months ago. She was being evaluated for a hiatal hernia. She has been smoking all the time. She was sent to Cardiology for evaluation. At that point she decided to quit smoking. She has not smoked since. She did undergo her surgery without complications. However, after surgery she noticed that her cough and shortness of breath became worse. She was given a rescue albuterol inhaler that was partially helpful. She has been using the inhaler several times a day. Symptoms tend to be all the time but worse at nighttime. She has a hard time expectorating. She has noted some yellowish in her sputum. She did undergo a chest x-ray which I personally reviewed demonstrating some increased ill-defined opacities at the bases suggesting some degree of chronic bronchitis or bronchitis bilaterally. She also had a CT scan of the chest from her lung cancer screening program that she is participating at [facility] which demonstrates some evidence of chronic bronchitis mosaic pattern and a low bit of emphysema as well. The patient also has pulmonary nodules have been followed. In the office she does have significant wheezing and rhonchi. I did give her a DuoNeb treatment. Hopefully she can feel better. 03/19/2023 the patient is here for pulmonary follow-up visit. The patient continues to struggle with her breathing. Still having significant chest congestion and wheezing. Complains of shortness of breath with activity. Moderate severity. She did take the prednisone twice 1 for her breathing 1 for her back and that improved her breathing significantly. She also complete the antibiotics. The patient did have a recent CT scan of the lung cancer screening program at [facility] which is reassuring with a rads 2. She will get another CT scan in a year's time. Overall her breathing is better although stopping significant wheezing and chest tightness. I do believe she needs better chest physical therapy. Will start her on budesonide and DuoNeb twice a day. Also provide her with an Acapella for chest PT and bronchopulmonary hygiene. The patient will also start Daliresp to minimize her prednisone use. If the patient has any issues she will call the office otherwise to follow-up in 3 months time. 08/08/2023 the patient is here for a pulmonary follow-up visit. Overall her b reathing is better overall. She still having chest congestion though she still having some wheezing on examination. We have started her on the budesonide nebulized therapy but it resulted in a an irritation to the oral mucosa. She still has the irritation even after a few months. It bautista her and bothers her when she eats something spicy. And is irritated to the lung. Therefore, she has not taking any inhaled steroids. She is tolerating the Daliresp 250 mcg. However yes she continues to have chest congestion and rhonchi on examination. Therefore will optimize respiratory therapy by increasing her Daliresp up to 500 mcg. The patient also will be sent albuterol that she can use her nebulizer for mucus clearance and bronchopulmonary hygiene. The patient also will start therapy for her oral lesions. I am hopeful that they improved. Once she completes the therapy for her oral lesions if the patient is not any better from a respiratory status she can always call him concerned her a course of azithromycin for macrolide suppression therapy. 10/11/2023 the patient is here for pulmonary follow-up visit. Overall she is doing little better. She still complains of the chest congestion. [id number] severity. Wheezing seems to be better. She has not been using nebulizer. She was still getting the ulcerations in the irritations even with the albuterol nebulized therapy. Therefore she has been not using any. She still has a rescue inhaler that she finds helpful. She does not have any adverse reactions to that 1. her cough is still congested. Will try to get a s putum culture. In the meantime will try to minimize inhaler therapy since she has had adverse reactions. She did respond partially to the fluconazole so for will restarted. We can also start her on azithromycin when she completes the fluconazole to treat for the chronic bronchitis. a for sputum demonstrates any other organisms then will have to change her therapy. Will follow-up in 2-3 months. While on the azithromycin she should have an EKG to make sure that her QT interval is stable. 04/27/2024 the patient is here for a pulmonary follow-up visit. Overall she she azithromycin unfortunately did develop COVID since I last saw her. She did take Paxil her symptoms were not too bad. She is back to her baseline. The Daliresp has been very effective for her. She has been able to cut down some of the inhaler therapy and she has not significant exacerbations. Her chronic bronchitis also much better controlled. She does have a rescue inhaler that typically uses less than 2 times a week. At this point the patient has not had pulmonary function studies which will plan to do in order to get it to pulmonary rehabilitation. I do believe that does going to help her improve her exercise capacity and her quality of life. In addition to that she is participating in the lung cancer screening program at [facility]. However, her CT scan was during the summer of 2023 she has not heard anything as of yet. She quit smoking 2 years ago. Therefore will go ahead and refer her to the program here specially since she lives in [facility] and will be easier to follow-up with her imag ing studies. [facility] Medical History (Updated 04/27/24 @ 09:59 by Bhavin Quan MD) Tobacco user Lesion of mouth Dyspnea Chronic cough COPD (chronic obstructive pulmonary disease) Thyroid nodule High cholesterol GERD (gastroesophageal reflux disease) Surgical History History of bunionectomy History of tubal ligation Family History Father Colon cancer Mother Hypertension Kidney stones Paternal Grandfather Heart attack Social History Alcohol intake: never Patient Tobacco Use Status: Former Tobacco user Tobacco use type: Cigarette Years Smoked: 45 Years Sexual orientation: Straight/Heterosexual Gender identity: Female Review of Systems Const Denies fever(s) Eyes Denies change in vision ENT Denies mouth lesions, Denies mouth pain and Reports nasal congestion Card Denies chest pain and Reports dyspnea on exertion Resp Denies chest congestion, Reports cough, Denies hemoptysis, Reports dyspnea on exertion and Denies wheezing GI Reports no additional complaints Musc Reports no additional complaints Skin/Breast Denies rash Neuro Reports no additional complaints Howie/Lymph Denies easy bleeding, Denies easy bruising, Denies lymphadenopathy and Reports other Aller/Immun Denies wheezing Physical Exam Vital Signs: Last Vital Signs Pulse 65 04/27/24 09:48 BP 128/70 04/27/24 09:48 Pulse Ox 97 04/27/24 09:48 Oxygen Delivery Method Room Air 04/27/24 09:48 Const General: comfortable Orientation/consciousness: patient oriented x3 HEENT Head: Yes normocephalic Mouth: Abnormal oral and palatal mucosa present lesions and ulceration Neck Neck: Yes supple Chest Chest palpation & inspection: normal inspection of the chest Resp Effort & Inspection: normal respiratory effort Auscultation: no rhonchi, no wheezes and diminished lung sounds Cardio Rate: regular rate Rhythm: regular rhythm Heart sounds: S1 normal heart sound present and S2 normal heart sound present GI Palpation (GI): Soft to palpation Neuro General: patient oriented x3 Extrem General: Yes no clubbing, cyanosis or edema Assessment & Plan Assessment & Plan (1) COPD (chronic obstructive pulmonary disease): Code(s): J44.9 - Chronic obstructive pulmonary disease, unspecified Category: Medical Qualifiers: COPD type: chronic bronchitis Chronic bronchitis type: mucopurulent Qualified Code(s): J41.1 - Mucopurulent chronic bronchitis (2) Chronic cough: Code(s): R05.3 - Chronic cough Category: Medical (3) Dyspnea: Code(s): R06.00 - Dyspnea, unspecified Category: Medical Qualifiers: Dyspnea type: dyspnea on exertion Qualified Code(s): R06.09 - Other forms of dyspnea Plan holding Advair HFA albuterol HFA as needed CPT with acapella valve continue Dalirep 500mcg PFTs Start Pulmonary rehab refer to LDCT (last CT from [facility] LDCT summer 2022) F/U 6 months Orders: Orders Pulmonary Rehab Today J41.1 - Mucopurulent chronic bronchitis PFT pulmonary function test Today J41.1 - Mucopurulent chronic bronchitis Referrals Lung Cancer Screening Referral Z72.0 - Tobacco use Medications: Discontinued Magic Mouthwash Diphen/Lido/Antacid 1:1:1 Lidocaine Viscous 2 % 80mL; diphenhydramine 12.5 mg/5 mL 80mL; aluminum-mag hydrox-simeth [id number]/5mL 80mL Discontinued Reason: Doctor's Order 5 mL PO TID 14 days PRN 240 mL 3RF mouth irritation Coding Level of Care Code Est Pt Level 4 (88484) Diagnoses Mucopurulent chronic bronchitis J41.1 COPD type: chronic bronchitis Chronic bronchitis type: mucopurulent Chronic cough R05.3 Dyspnea on exertion R06.09 Dyspnea type: dyspnea on exertion Time Spent (min) 17
== END 2024-04-27 10:17 | disposition home or self-care (01) ==
PROVIDERS: PCP Internal Medicine; Visit Provider Hospitalist
DX: J41.1 Mucopurulent chronic bronchitis (principal); R05.3 Chronic cough; R06.09 Other forms of dyspnea
CPT/HCPCS: 99214

== ENCOUNTER → 2024-04-27 09:32 | Outpatient (BNVA) | payer MEDICARE, SELFPAY | PROVIDERS: PCP Nurse Practitioner Family; Visit Provider Hospitalist | DX: J41.1 Mucopurulent chronic bronchitis (principal); R05.3 Chronic cough; R06.00 Dyspnea, unspecified | CPT/HCPCS: 99212 ==

== ENCOUNTER 2024-05-26 09:19 | Outpatient (REF) | payer MEDICARE, SELFPAY ==
[2024-05-26 08:54] VITALS: PULSE 61; RESP 16; O2SAT 96
--- NOTE | 2024-05-26 09:51 | PFT_ITS ---
Flows: FEV1: 95 % of predicted at 2.60 L FVC: 120 % of predicted at 4.28 L FEV1/FVC: 61 % Bronchodilator response: Present Volumes: Total lung capacity: 97 % of predicted at 5.92 L Residual volume: 81 % of predicted at 1.90 L Slow vital capacity: 107 % of predicted at 4.02 L Expiratory reserve volume: 94 % of predicted at 0.91 L Diffusion capacity: Mildly decreased. Impression: Mild obstructive ventilatory defect with positive bronchodilator response. Decreased diffusion capacity suggests emphysema. MTDD
== END 2024-05-26 09:20 | disposition home or self-care (01) ==
LOC: HO.RESP 09:19
PROVIDERS: PCP Internal Medicine; Visit Provider Hospitalist
DX: J41.1 Mucopurulent chronic bronchitis (principal)
CPT/HCPCS: 94010; 94640; 94727; 94729

== ENCOUNTER → 2024-05-26 09:51 | Outpatient (BNV) | payer MEDICARE, SELFPAY | PROVIDERS: PCP Internal Medicine; Visit Provider Internal Medicine Pulmonary Disease | DX: J41.1 Mucopurulent chronic bronchitis (principal) | CPT/HCPCS: 94060; 94727; 94729 ==

== ENCOUNTER 2024-07-03 09:27 | Outpatient (AMB) | payer MEDICARE, SELFPAY ==
--- NOTE | 2024-07-03 07:42 | MHC.OFFVIS ---
Intake Visit Reasons: Former Smoker Allergies Tetanus Vaccines and Toxoid [TETANUS] Allergy (Severe, Unverified 04/27/24 09:52) ARM TURNED BLACK HPI HPI Former Smoker: Details: Initial visit for this 68yo former smoker with a 45PYH. Patient started smoking at age 18 for 48 years at 1ppd. She quit smoking 2 years ago 05/2022. . Denies marijuana use. Reports second hand smoke exposure. Spouse. Denies exposure to chemicals or substances like asbestos. . Denies known family history of lung cancer. Denies personal history of cancers. Denies chest CT in last year. Reports prior LDCT in 2022 in [place] through [facility] - was due this Summer. . Denies recent travel outside the [place]. Denies recent respiratory illness or recent hospitalization for respiratory issues. Denies testing positive for COVID 12/2023. Admits receiving COVID Vaccine. Recently got RSV and pnumococcal vaccines. . Denies fever, chills, new/worsening cough, hemoptysis, hoarseness or dysphagia. Denies significant chest pain, significant dyspnea or unintentional weight loss. Patient Lung Cancer Screening Questionnaire reviewed with patient by provider. . Shared Decision Making Completed. Patient meets criteria. Discussed in detail with patient, the risk vs benefit of LDCT screening. Patient consents to proceed with scan. Discussed and encouraged continued smoking cessation. [facility] Medical History (Updated 07/03/24 @ 09:41 by Adamaris Schwarz PA-C) Personal history of nicotine dependence Lesion of mouth Dyspnea Chronic cough COPD (chronic obstructive pulmonary disease) Thyroid nodule High cholesterol GERD (gastroesophageal reflux disease) Surgical History (Updated 07/03/24 @ 09:43 by Adamaris Schwarz PA-C) History of lumbar surgery History of hernia repair History of bunionectomy History of tubal ligation Family History Father Colon cancer Mother Hypertension Kidney stones Paternal Grandfather Heart attack Social History (Updated 07/03/24 @ 09:41 by Adamaris Schwarz PA-C) Alcohol intake: never Patient Tobacco Use Status: Former Tobacco user Tobacco use type: Cigarette Years Smoked: (onset 18yo, 1ppd x 48yrs, 45pyh - quit 05/2022) Sexual orientation: Straight/Heterosexual Gender identity: Female Assessment & Plan Assessment & Plan (1) Personal history of nicotine dependence: Comment: (onset 18yo, 1ppd x 48yrs, 45pyh - quit 05/2022) Code(s): Z87.891 - Personal history of nicotine dependence Category: Medical Plan: - SDM visit completed today in office. - Patient meets criteria for LDCT for lung cancer screening purposes and is asymptomatic. - Smoking cessation counseling offered. Patients can always call [phone]. - Will arrange for a LDCT scan of the chest for screening purposes at [facility]. - Risks, benefits, and alternatives were discussed in detail and the patient agrees to proceed. - Risks discussed include but are not limited to: radiation exposure, anxiety during testing and while awaiting results, false negatives, false positives and possibility of additional intervention such as further imaging or surgical procedures for benign disease. - Benefits are obviously detection of lung cancer at an early stage which can lead to improved outcomes. - Discussed the importance of screening program compliance with adherence to yearly LDCT scan as scheduled - or sooner interval scans for personalized screening regimen. - Discussed follow up plan. Our office will send a letter discussing results and if needed set up phone call and office visit based on CT findings. - Patient educated on results categorization and the management decisions for suspicious findings potentially found on the screening LDCT scan. Any patient with a Lung RADS score of 3 or 4 will be reviewed by a multidisciplinary team at [facility] to form a plan of action in regards to scan findings. - If further work up is warranted for a suspicious lung finding this will be followed by the Lung Cancer Screening program in conjunction with the Thoracic Surgery Department at [facility]. - A copy of the office note and LDCT will be sent to the patient's PCP - as well as documentation on any associated further plans of care. - Incidental findings on LDCT are the PCP's responsibility. These findings are indicated with an S finding on the LDCT Assessment. A note discussing the findings will be sent to the PCP who is then responsible for further management. - All questions answered.? Coding Level of Care Code Lung Cancer Screening G0296 Diagnoses Personal history of nicotine dependence Z87.891
== END 2024-07-03 10:18 | disposition home or self-care (01) ==
PROVIDERS: PCP Internal Medicine; Visit Provider Physician Assistant Medical
DX: Z87.891 Personal history of nicotine dependence (principal)
CPT/HCPCS: G0296

== ENCOUNTER 2024-07-03 09:50 | Outpatient (REF) | payer MEDICARE, SELFPAY | END 2024-07-03 09:51 | disposition home or self-care (01) | LOC: HO.CT 09:50 | PROVIDERS: PCP Internal Medicine; Visit Provider Physician Assistant Medical | DX: Z12.2 Encounter for screening for malignant neoplasm of respiratory organs (principal); Z87.891 Personal history of nicotine dependence | CPT/HCPCS: 71271; G0296 ==

== ENCOUNTER → 2024-07-03 09:52 | Outpatient (BNV) | payer MEDICARE, SELFPAY | PROVIDERS: PCP Internal Medicine; Visit Provider Radiology Diagnostic Radiology | DX: Z12.2 Encounter for screening for malignant neoplasm of respiratory organs (principal); Z87.891 Personal history of nicotine dependence | CPT/HCPCS: 71271 ==

== ENCOUNTER 2024-08-14 09:56 | Outpatient (REF) | payer MEDICARE, SELFPAY ==
[2024-08-14 10:10] LABS: MANUAL DIFF FLAG NO
[2024-08-14 10:45] LABS: Basophils Absolute Auto 0.1 X10*3/uL (0.0-0.2); Basophils Percent Auto 1.1 % (0-2); Eosinophils Absolute Auto 0.1 X10*3/uL (0.0-0.4); Eosinophils Percent Auto 1.5 % (0-4); Hematocrit 44.1 % (37.0-47.0); Hemoglobin 14.4 g/dl (12.0-16.0); Imm Gran Abs Auto 0.01 X10*3/uL (0.00-0.03); Imm Gran Pct Auto 0.2 % (0.0-0.4); Lymphocytes Absolute Auto 1.8 X10*3/uL (1.2-4.9); Lymphocytes Percent Auto 37.6 % (20-40); Mean Corpuscular HGB Conc 32.7 g/dl (31.0-35.0); Mean Corpuscular Hemoglobin 29.7 pg (27.0-33.0); Mean Corpuscular Volume 90.9 fL (80.0-98.0); Mean Platelet Volume 10.1 fL (9.4-12.3); Monocytes Absolute Auto 0.5 X10*3/uL (0.1-1.2); Monocytes Percent Auto 9.9 % (2-11); Neutrophils Absolute Auto 2.3 x10*3/uL (2.0-8.3); Neutrophils Percent Auto 49.7 % (45-73); Platelet Count 219 X10*3/uL (160-400); Red Blood Count 4.85 X10*6/uL (4.20-5.50); Red Cell Distribution Width 12.3 % (11.0-16.0); White Blood Count 4.7 X10*3/uL (4.8-10.8)
[2024-08-14 15:17] LABS: Alanine Aminotransferase 23 U/L (0-31); Albumin Level 4.3 g/dL (3.5-5.0); Alkaline Phosphatase 53 U/L (39-117); Anion Gap 12 (12-20); Aspartate Amino Transferase 23 U/L (5-31); Bilirubin Total 0.6 mg/dL (0.0-1.0); Blood Urea Nitrogen 15 mg/dL (9-16); Calcium 9.9 mg/dL (8.4-10.2); Carbon Dioxide 24 mmol/L (22-29); Chloride 110 mmol/L (96-108); Cholesterol 160 mg/dL (<200); Estimated Glomerular Filt Rate 50; Glucose Random 79 mg/dL (60-115); HDL Cholesterol 53 mg/dL (>40); LDL Cholesterol Calculated 87 mg/dL (<100); Potassium 4.2 mmol/L (3.3-5.1); Sodium 142 mmol/L (135-145); Thyroid Stimulating Hormone 1.72 uIU/mL (0.32-4.0); Triglycerides 102 mg/dL (<150)
== END 2024-08-14 09:57 | disposition home or self-care (01) ==
LOC: HO.LAB 09:56
PROVIDERS: PCP Internal Medicine; Visit Provider Internal Medicine
DX: E03.9 Hypothyroidism, unspecified (principal); H35.60 Retinal hemorrhage, unspecified eye; I10 Essential (primary) hypertension; J44.9 Chronic obstructive pulmonary disease, unspecified; Z84.1 Family history of disorders of kidney and ureter
CPT/HCPCS: 36415; 80053; 80061; 84443; 85025

== ENCOUNTER 2024-10-27 09:35 | Outpatient (AMB) | payer MEDICARE, SELFPAY ==
[2024-10-27 10:00] VITALS: BP 140/98; PULSE 56; O2SAT 97; BMI 34.2
--- NOTE | 2024-10-27 10:00 | MHC.OFFVIS ---
Vital Signs 10/27/24 10:00 Height 5 ft 10 in Weight 238 lb 1.588 oz BMI 34.2 BP 140/98 H Blood Pressure Location Rt brachial Position Sitting Pulse 56 Pulse Source Pulse Oximeter Pulse Oximetry (%) 97 Oxygen Delivery Method Room Air Intake Visit Reasons: Asthma Allergies Tetanus Vaccines and Toxoid [TETANUS] Allergy (Severe, Unverified 10/27/24 10:05) ARM TURNED BLACK HPI Comments Details: The patient is 69 year woman former smoker presenting with worsening cough and shortness of breath. The patient states that she was in usual state health until about 7 months ago. She was being evaluated for a hiatal hernia. She has been smoking all the time. She was sent to Cardiology for evaluation. At that point she decided to quit smoking. She has not smoked since. She did undergo her surgery without complications. However, after surgery she noticed that her cough and shortness of breath became worse. She was given a rescue albuterol inhaler that was partially helpful. She has been using the inhaler several times a day. Symptoms tend to be all the time but worse at nighttime. She has a hard time expectorating. She has noted some yellowish in her sputum. She did undergo a chest x-ray which I personally reviewed demonstrating some increased ill-defined opacities at the bases suggesting some degree of chronic bronchitis or bronchitis bilaterally. She also had a CT scan of the chest from her lung cancer screening program that she is participating at [facility] which demonstrates some evidence of chronic bronchitis mosaic pattern and a low bit of emphysema as well. The patient also has pulmonary nodules have been followed. In the office she does have significant wheezing and rhonchi. I did give her a DuoNeb treatment. Hopefully she can feel better. 03/19/2023 the patient is here for pulmonary follow-up visit. The patient continues to struggle with her breathing. Still having significant chest congestion and wheezing. Complains of shortness of breath with activity. Moderate severity. She did take the prednisone twice 1 for her breathing 1 for her back and that improved her breathing significantly. She also complete the antibiotics. The patient did have a recent CT scan of the lung cancer screening program at [facility] which is reassuring with a rads 2. She will get another CT scan in a year's time. Overall her breathing is better although stopping significant wheezing and chest tightness. I do believe she needs better chest physical therapy. Will start her on budesonide and DuoNeb twice a day. Also provide her with an Acapella for chest PT and bronchopulmonary hygiene. The patient will also start Daliresp to minimize her prednisone use. If the patient has any issues she will call the office otherwise to follow-up in 3 months time. 08/08/2023 the patient is here for a pulmonary follow-up visit. Overall her breathing is better overall. She still having chest congestion though she still having some wheezing on examination. We have started her on the budesonide nebulized therapy but it resulted in a an irritation to the oral mucosa. She still has the irritation even after a few months. It bautista her and bothers her when she eats something spicy. And is irritated to the lung. Therefore, she has not taking any inhaled steroids. She is tolerating the Daliresp 250 mcg. However yes she continues to have chest congestion and rhonchi on examination. Therefore will optimize respiratory therapy by increasing her Daliresp up to 500 mcg. The patient also will be sent albuterol that she can use her nebulizer for mucus clearance and bronchopulmonary hygiene. The patient also will start therapy for her oral lesions. I am hopeful that they improved. Once she completes the therapy for her oral lesions if the patient is not any better from a respiratory status she can always call him concerned her a course of azithromycin for macrolide suppression therapy. 10/11/2023 the patient is here for pulmonary follow-up visit. Overall she is doing little better. She still complains of the chest congestion. Dthl-ml-eojfvwgi severity. Wheezing seems to be better. She has not been using nebulizer. She was still getting the ulcerations in the irritations even with the albuterol nebulized therapy. Therefore she has been not using any. She still has a rescue inhaler that she finds helpful. She does not have any adverse reactions to that 1. her cough is still congested. Will try to get a sputum culture. In the meantime will try to minimize inhaler therapy since she has had adverse reactions. She did respond partially to the fluconazole so for will restarted. We can also start her on azithromycin when she completes the fluconazole to treat for the chronic bronchitis. a for sputum demonstrates any other organisms then will have to change her therapy. Will follow-up in 2-3 months. While on the azithromycin she should have an EKG to make sure that her QT interval is stable. 04/27/2024 the patient is here for a pulmonary follow-up visit. Overall she she azithromycin unfortunately did develop COVID since I last saw her. She did take Paxil her symptoms were not too bad. She is back to her baseline. The Daliresp has been very effective for her. She has been able to cut down some of the inhaler therapy and she has not significant exacerbations. Her chronic bronchitis also much better controlled. She does have a rescue inhaler that typically uses less than 2 times a week. At this point the patient has not had pulmonary function studies which will plan to do in order to get it to pulmonary rehabilitation. I do believe that does going to help her improve her exercise capacity and her quality of life. In addition to that she is participating in the lung cancer screening program at [facility]. However, her CT scan was during the summer of 2023 she has not heard anything as of yet. She quit smoking 2 years ago. Therefore will go ahead and refer her to the program here specially since she lives in [facility] and will be easier to follow-up with her imaging studies. 10/27/2024 the patient is here for pulmonary follow-up visit. The patient overall has been complaining of worsening cough in addition to shortness of breath and tightness. Moderate severity. She has been using her nebulizer as needed. She also has a rescue inhaler. We did review her PFTs demonstrating obstructive airway disease. In addition to that her last CT scan was back in June. She does have significant wheezing and rhonchi on exam. Will go ahead and start her on a maintenance inhaler with Symbicort. In addition to that will start azithromycin 3 times a week for her chronic bronchitis. If the patient is no better she will call. Will follow-up in 3 months. If the patient is not feeling better she call and will consider some prednisone. I am hopeful that her respiratory symptoms improved with the additional medication. [facility] Medical History (Updated 10/27/24 @ 19:49 by Bhavin Quan MD) Pulmonary nodules Personal history of nicotine dependence Lesion of mouth Dyspnea Chronic cough COPD (chronic obstructive pulmonary disease) Thyroid nodule High cholesterol GERD (gastroesophageal reflux disease) Surgical History (Updated 07/03/24 @ 09:43 by Adamaris Schwarz PA-C) History of lumbar surgery History of hernia repair History of bunionectomy History of tubal ligation Family History Father Colon cancer Mother Hypertension Kidney stones Paternal Grandfather Heart attack Social History Alcohol intake: never Patient Tobacco Use Status: Former Tobacco user Tobacco use type: Cigarette Years Smoked: (onset 18yo, 1ppd x 48yrs, 45pyh - quit 05/2022) Sexual orientation: Straight/Heterosexual Gender identity: Female Review of Systems Const Denies fever(s) Eyes Denies change in vision ENT Denies mouth lesions, Denies mouth pain and Reports nasal congestion Card Denies chest pain and Reports dyspnea on exertion Resp Reports chest congestion, Reports cough, Denies hemoptysis, Reports dyspnea on exertion and Denies wheezing GI Reports no additional complaints Musc Reports no additional complaints Skin/Breast Denies rash Neuro Reports no additional complaints Howie/Lymph Denies easy bleeding, Denies easy bruising, Denies lymphadenopathy and Reports other Aller/Immun Denies wheezing Physical Exam Vital Signs: Last Vital Signs Pulse 56 10/27/24 10:00 BP 140/98 H 10/27/24 10:00 Pulse Ox 97 10/27/24 10:00 Oxygen Delivery Method Room Air 10/27/24 10:00 BMI result Body Mass Index 34.2 Const General: comfortable Orientation/consciousness: patient oriented x3 HEENT Head: Yes normocephalic Mouth: Abnormal oral and palatal mucosa present lesions and ulceration Neck Neck: Yes supple Chest Chest palpation & inspection: normal inspection of the chest Resp Effort & Inspection: normal respiratory effort Auscultation: rhonchi, no wheezes and diminished lung sounds Cardio Rate: regular rate Rhythm: regular rhythm Heart sounds: S1 normal heart sound present and S2 normal heart sound present GI Palpation (GI): Soft to palpation Neuro General: patient oriented x3 Extrem General: Yes no clubbing, cyanosis or edema Assessment & Plan Assessment & Plan (1) COPD (chronic obstructive pulmonary disease): Code(s): J44.9 - Chronic obstructive pulmonary disease, unspecified Category: Medical Qualifiers: COPD type: chronic bronchitis Chronic bronchitis type: mucopurulent Qualified Code(s): J41.1 - Mucopurulent chronic bronchitis (2) Chronic cough: Code(s): R05.3 - Chronic cough Category: Medical (3) Dyspnea: Code(s): R06.00 - Dyspnea, unspecified Category: Medical Qualifiers: Dyspnea type: dyspnea on exertion Qualified Code(s): R06.09 - Other forms of dyspnea (4) Pulmonary nodules: Code(s): R91.8 - Other nonspecific abnormal finding of lung field Category: Medical Plan start Symbicort albuterol HFA as needed CPT with acapella valve continue Dalirep 500mcg start Azithromycin MWF x 6-8 weeks PFTs Start Pulmonary rehab LDCT 06/2025 rads 2 F/U 4 months Medications: New budesonide-formoterol 160-4.5 mcg/actuation 2 puffs inhalation BID 30 days 10.2 grams 11RF J44.89 - Other specified chronic obstructive pulmonary disease azithromycin Take 1 tablet on Saturday/Saturday/Saturday 250 mg PO 3XW 28 days 12 tabs 1RF K21.9 - Gastro-esophageal reflux disease without esophagitis Coding Level of Care Code Est Pt Level 4 (31104) Complex EM visit Add On G2211 Diagnoses Mucopurulent chronic bronchitis J41.1 COPD type: chronic bronchitis Chronic bronchitis type: mucopurulent Chronic cough R05.3 Dyspnea on exertion R06.09 Dyspnea type: dyspnea on exertion Pulmonary nodules R91.8 Time Spent (min) 17
--- OUTSIDE RECORDS SUMMARY | 2024-10-27 10:46 | XMS_ITS ---
Author Organization [facility] Address [address] [place] [address] Care Team Providers Care Gas Operator Name Role Phone Michelle Milian CNP Primary Care Provider Unavail able Norman Bell [phone] REASON FOR VISIT cancel insurance Encounters Encounter Location Date Provider Diagnosis [facility] [address] [place] [address] 05/20/2023 Norman Bell Plan Of Treatment No Information Progress Notes * SIMÓN MCDONOUGHEDOB:1955 (67 yo F)Acc No.[id number]:05/20/2023 Patient:?MONTY MCDONOUGH :1955???Age:67 Y???Sex:Female [facility], [address] * true * Date:? Generated for Evani brett/Chantelle/eTransmitting on:?10/27/2024 10:46 AM EDT
--- OUTSIDE RECORDS SUMMARY | 2024-10-27 10:46 | XMS_ITS ---
Author Organization [facility] Address [address] [place] [address] Care Team Providers Care Recreation Attendant Name Role Phone Michelle Milian CNP Primary Care Provider Unavail Norman Pardo [phone] REASON FOR VISIT Patient presents today for a COLON SCREENING Encounters Encounter Location Date Provider Diagnosis [facility] [address] [facility] [address] 05/22/2023 Norman Bell Plan Of Treatment No Information Progress Notes * SIMÓN MCDONOUGHEDOB:1955 (69 yo F)Acc No.[id number]:05/22/2023 Progress Notes Patient:?MONTY MCDONOUGH Provider:?Norman Bell MD :1955???Age:67 Y???Sex:Female D ate:05/22/2023 Address: [place] [address] [facility] Pcp:Michelle Milian CNP Subjective: * Chief Complaints: * ???1. Patient presents today for a COLON SCREENING. * Medical History:? Objective: * Vitals:? Assessment: Plan: * Treatment: * * The named appointment provid er may or may not be the originator of this progress note, and it is not deemed complete until electronically signed by the appointment provider. Sign off status: Pending * Provider:?Norman Bell MD Date:? 023 Generated for Myron west/Chantelle/eTransmitting on:?10/27/2024 10:46 AM EDT
--- OUTSIDE RECORDS SUMMARY | 2024-10-27 10:46 | XMS_ITS | Patient Health Record ---
Author Organization [facility] Address [address] [place] [address] Care Team Providers Care Patient Access Name Role Phone Michelle Milian CNP Primary Care Provider Unavail able Adonay Bell [phone] Allergies Allergen (clinical drug ingredient) Drug/Non Drug Allergy documented on EMR Reaction Allergy Type Onset Date Status Tetanus Unknown Drug Allergy Active Reason For Referral No Information Medications Medication SIG (Take, Route, Frequency, Duration) Notes Start Date End Date Status Cyclopentolate HCl 2 % Ophthalmic for 25 Active Pantoprazole Sodium 40 MG Oral for 30 Active Levothyroxine Sodium 112 MCG 1 tablet on an empty stomach in the morning Orally Once a day Active Multivitamin Adult - Orally Active tylenol 1 tab Oral Active Social History Tobacco Use: Social History Observation Description Date Details (start date - stop date) Current Smoker NA - NA Tobacco Use/Smoking Question Answer Notes Patient is a current smoker How often do you smoke cigarettes? every day How many cigarettes a day do you smoke? 11-20 Alcohol Screen Question Answer Notes Did you have a drink containing alcohol in the p ast year? No Points 0 Interpretation Negative Section Notes: Smoker 1/2 to 1 ppd; no alco hol Problems Problem Type SNOMED Code ICD Code Onset Dates Problem Status W/U Status Risk Notes Problem 114020812 Encounter for screening for malignant neoplasm of colon (Z12.11) Active confirmed Problem 645889486 Gastroesophageal reflux disease, esophagitis presence not specified (K21.9) Active confirmed Plan Of Treatment Future Test Test Name Order Date UPPER GI ENDOSCOPY 12/18/2016 COLONOSCOPY 12/18/2016 Insurance Providers Payer Name Payer Address Payer Phone Subscriber Number Group Number Insured Name Patient Relationship to Insured Coverage Start Date Coverage End Date MED[employer] OF [employer] [address] [place] [id number] MONTY GATES Self - patient is the insured Medical (General) History Medical History History ICD Code Denies MO,DM,CVA,Lung disease,renal dise ase Hypothyroidism Colonoscopy 12/2002 at [facility] with Dr. Fair s--1 tubular adenoma Shingles 10/2016--on right thigh Right eye problems--seeing a n opthamologist--keeping the right pupil dilated as of now GERD Sleep apnea, but not requiring a CPAP as yet Surgical History Surgery Date(Month/Year) Bunionectomy on the left foot
== END 2024-10-27 10:34 | disposition home or self-care (01) ==
LOC: HO.HPS 09:35
PROVIDERS: PCP Internal Medicine; Visit Provider Hospitalist
DX: J41.1 Mucopurulent chronic bronchitis (principal); R05.3 Chronic cough; R06.09 Other forms of dyspnea; R91.8 Other nonspecific abnormal finding of lung field
CPT/HCPCS: 99214; G2211

== ENCOUNTER → 2024-10-27 09:35 | Outpatient (BNVA) | payer MEDICARE, SELFPAY | PROVIDERS: PCP Internal Medicine; Visit Provider Hospitalist | DX: J41.1 Mucopurulent chronic bronchitis (principal); R91.8 Other nonspecific abnormal finding of lung field; R05.3 Chronic cough; R06.09 Other forms of dyspnea | CPT/HCPCS: 99212 ==

== ENCOUNTER 2025-01-27 10:03 | Outpatient (AMB) | payer MEDICARE, SELFPAY ==
[2025-01-27 10:13] VITALS: BP 138/80; PULSE 78; O2SAT 96; BMI 33.1
--- NOTE | 2025-01-27 10:13 | A.OFFVIS_ITS ---
Vital Signs 01/27/25 10:13 Height 5 ft 10 in Weight 230 lb 6.129 oz BMI 33.1 BP 138/80 Blood Pressure Location Lt brachial Position Sitting Pulse 78 Pulse Source Pulse Oximeter Pulse Oximetry (%) 96 Oxygen Delivery Method Room Air Intake Visit Reasons: Asthma Ladies Locker Room Attendant Required: No Accompanied by: Self / Same As Patient Allergies Tetanus Vaccines and Toxoid (TETANUS) Allergy (Severe, Verified 01/27/25 10:17) ARM TURNED BLACK HPI Comments Details: The patient is 69 year woman former smoker presenting with worsening cough and shortness of breath. The patient states that she was in usual state health until about 7 months ago. She was being evaluated for a hiatal hernia. She has been smoking all the time. She was sent to Cardiology for evaluation. At that point she decided to quit smoking. She has not smoked since. She did undergo her surgery without complications. However, after surgery she noticed that her cough and shortness of breath became worse. She was given a rescue albuterol inhaler that was partially helpful. She has been using the inhaler several times a day. Symptoms tend to be all the time but worse at nighttime. She has a hard time expectorating. She has noted some yellowish in her sputum. She did undergo a chest x-ray which I personally reviewed demonstrating some increased ill-defined opacities at the bases suggesting some degree of chronic bronchitis or bronchitis bilaterally. She also had a CT scan of the chest from her lung cancer screening program that she is participating at [facility] which demonstrates some evidence of chronic bronchitis mosaic pattern and a low bit of emphysema as well. The patient also has pulmonary nodules have been followed. In the office she does have significant wheezing and rhonchi. I did give her a DuoNeb treatment. Hopefully she can feel better. 03/19/2023 the patient is here for pulmonary follow-up visit. The patient continues to struggle with her breathing. Still having significant chest congestion and wheezing. Complains of shortness of breath with activity. Moderate severity. She did take the prednisone twice 1 for her breathing 1 for her back and that improved her breathing significantly. She also complete the antibiotics. The patient did have a recent CT scan of the lung cancer screening program at [facility] which is reassuring with a rads 2. She will get another CT scan in a year's time. Overall her breathing is better although stopping significant wheezing and chest tightness. I do believe she needs better chest physical therapy. Will start her on budesonide and DuoNeb twice a day. Also provide her with an Acapella for chest PT and bronchopulmonary hygiene. The patient will also start Daliresp to minimize her prednisone use. If the patient has any issues she will call the office otherwise to follow-up in 3 months time. 08/08/2023 the patient is here for a pulmonary follow-up visit. Overall her breathing is better overall. She still having chest congestion though she still having some wheezing on examination. We have started her on the budesonide nebulized therapy but it resulted in a an irritation to the oral mucosa. She still has the irritation even after a few months. It bautista her and bothers her when she eats something spicy. And is irritated to the lung. Therefore, she has not taking any inhaled steroids. She is tolerating the Daliresp 250 mcg. However yes she continues to have chest congestion and rhonchi on examination. Therefore will optimize respiratory therapy by increasing her Daliresp up to 500 mcg. The patient also will be sent albuterol that she can use her nebulizer for mucus clearance and bronchopulmonary hygiene. The patient also will start therapy for her oral lesions. I am hopeful that they improved. Once she completes the therapy for her oral lesions if the patient is not any better from a respiratory status she can always call him concerned her a course of azithromycin for macrolide suppression therapy. 10/11/2023 the patient is here for pulmonary follow-up visit. Overall she is doing little better. She still complains of the chest congestion. Hypd-zo-fjeyrdxq severity. Wheezing seems to be better. She has not been using nebulizer. She was still getting the ulcerations in the irritations even with the albuterol nebulized therapy. Therefore she has been not using any. She still has a rescue inhaler that she finds helpful. She does not have any a dverse reactions to that 1. her cough is still congested. Will try to get a sputum culture. In the meantime will try to minimize inhaler therapy since she has had adverse reactions. She did respond partially to the fluconazole so for will restarted. We can also start her on azithromycin when she completes the fluconazole to treat for the chronic bronchitis. a for sputum demonstrates any other organisms then will have to change her therapy. Will follow-up in 2-3 months. While on the azithromycin she should have an EKG to make sure that her QT interval is stable. 04/27/2024 the patient is here for a pulmonary follow-up visit. Overall she she azithromycin unfortunately did develop COVID since I last saw her. She did take Paxil her symptoms were not too bad. She is back to her baseline. The Daliresp has been very effective for her. She has been able to cut down some of the inhaler therapy and she has not significant exacerbations. Her chronic bronchitis also much better controlled. She does have a rescue inhaler that typically uses less than 2 times a week. At this point the patient has not had pulmonary function studies which will plan to do in order to get it to pulmonary rehabilitation. I do believe that does going to help her improve her exercise capacity and her quality of life. In addition to that she is participating in the lung cancer screening program at [facility]. However, her CT scan was during the summer of 2023 she has not heard anything as of yet. She quit smoking 2 years ago. Therefore will go ahead and refer her to the program here specially since she lives in [facility] and will be easier to follow-up with her imaging studies. 10/27/2024 the patient is here for pulmonary follow-up visit. The patient overall has been complaining of worsening cough in addition to shortness of breath and tightness. Moderate severity. She has been using her nebulizer as needed. She also has a rescue inhaler. We did review her PFTs demonstrating obstructive airway disease. In addition to that her last CT scan was back in June. She does have significant wheezing and rhonchi on exam. Will go ahead and start her on a maintenance inhaler with Symbicort. In addition to that will start azithromycin 3 times a week for her chronic bronchitis. If the patient is no better she will call. Will follow-up in 3 months. If the patient is not fee ling better she call and will consider some prednisone. I am hopeful that her respiratory symptoms improved with the additional medication. 01/27/2025 the patient is here for pulmonary follow-up visit. Overall she is feeling better. She has been able to exercise regularly. I did give her information about the pulmonary wellness nonprofit organization that she can get additional information from. In addition that she continues her inhalers with good response. But for the last 3 weeks she started developing a URI and then developed a cough not been productive. Her phlegm is clear but she has feel like it is just not clearing at this point in his smoldering. She does have a very productive cough will go ahead and start her on doxycycline at this time. She is participating in the lung cancer screening program. Her next CT scan will be sometime by the end of the year. Will go ahead and follow-up in 6-8 months. If any issues arise prior to that she will call for an earlier assessm ent. [facility] Medical History (Updated 10/27/24 @ 19:49 by Bhavin Quan MD) Pulmonary nodules Personal history of nicotine dependence Lesion of mouth Dyspnea Chronic cough COPD (chronic obstructive pulmonary disease) Thyroid nodule High cholesterol GERD (gastroesophageal reflux disease) Surgical History (Updated 07/03/24 @ 09:43 by Adamaris Schwarz PA-C) History of lumbar surgery History of hernia repair History of bunionectomy History of tubal ligation Family History Father Colon cancer Mother Hypertension Kidney stones Paternal Grandfather Heart attack Social History Alcohol intake: never Patient Tobacco Use Status: Former Tobacco user Tobacco use type: Cigarette Years Smoked: (onset 18yo, 1ppd x 48yrs, 45pyh - quit 05/2022) Sexual orientation: Straight/Heterosexual Gender identity: Female Review of Systems Const Denies fever(s) Eyes Denies change in vision ENT Denies mouth lesions, Denies mouth pain and Reports nasal congestion Card Denies chest pain and Reports dyspnea on exertion Resp Reports chest congestion, Reports cough, Denies hemoptysis, Reports dyspnea on exertion and Denies wheezing GI Reports no additional complaints Musc Reports no additional complaints Skin/Breast Denies rash Neuro Reports no additional complaints Howie/Lymph Denies easy bleeding, Denies easy bruising, Denies lymphadenopathy and Reports other Aller/Immun Denies wheezing Physical Exam Vital Signs: Last Vital Signs Pulse 78 01/27/25 10:13 BP 138/80 01/27/25 10:13 Pulse Ox 96 01/27/25 10:13 Oxygen Delivery Method Room Air 01/27/25 10:13 BMI result Body Mass Index 33.1 Const General: comfortable Orientation/consciousness: patient oriented x3 HEENT Head: Yes normocephalic Mouth: Abnormal oral and palatal mucosa present lesions and ulceration Neck Neck: Yes supple Chest Chest palpation & inspection: normal inspection of the chest Resp Effort & Inspection: normal respiratory effort Auscultation: no wheezes and diminished lung sounds Cardio Rate: regular rate Rhythm: regular rhythm Heart sounds: S1 normal heart sound present and S2 normal heart sound present GI Palpation (GI): Soft to palpation Neuro General: patient oriented x3 Extrem General: Yes no clubbing, cyanosis or edema Assessment & Plan Assessment & Plan (1) COPD (chronic obstructive pulmonary disease): Code(s): J44.9 - Chronic obstructive pulmonary disease, unspecified Category: Medical Qualifiers: COPD type: chronic bronchitis Chronic bronchitis type: mucopurulent Qualified Code(s): J41.1 - Mucopurulent chronic bronchitis (2) Chronic cough: Code(s): R05.3 - Chronic cough Category: Medical (3) Dyspnea: Code(s): R06.00 - Dyspnea, unspecified Category: Medical Qualifiers: Dyspnea type: dyspnea on exertion Qualified Code(s): R06.09 - Other forms of dyspnea (4) Pulmonary nodules: Code(s): R91.8 - Other nonspecific abnormal finding of lung field Category: Medical Plan continue Symbicort albuterol HFA as needed CPT with acapella valve start Doxycycline x 10 days continue Dalirep 500mcg LDCT 06/2025 rads 2 F/U 6-8 months Medications: New doxycycline hyclate 100 mg PO BID 20 caps 0RF 10 days Coding Level of Care Code Est Pt Level 4 (33823) Complex EM visit Add On G2211 Diagnoses Mucopurulent chronic bronchitis J41.1 COPD type: chronic bronchitis Chronic bronchitis type: mucopurulent Chronic cough R05.3 Dyspnea on exertion R06.09 Dyspnea type: dyspnea on exertion Pulmonary nodules R91.8 Time Spent (min) 17
--- OUTSIDE RECORDS SUMMARY | 2025-01-27 10:49 | XMS_ITS | Patient Health Record ---
Author Organization [facility] Address [address] [place] [address] Care Team Providers Care Monotyper Name Role Phone Michelle Milian CNP Primary Care Provider Unavail able Adonay Bell [phone] Allergies Allergen (clinical drug ingredient) Drug/Non Drug [...] Problem Status W/U Status Risk Notes Problem [id number] Encounter for screening for malignant neoplasm of colon (Z12.11) Active confirmed Problem [id number] Gastroesophageal reflux disease, esophagitis presence not specified (K21.9) Active confirmed Plan Of Treatment Future Test Test Name Order Date UPPER GI ENDOSCOPY 12/18/2016 COLONOSCOPY 12/18/2016 Insurance Providers Payer Name Payer Address Payer Phone Subscriber Number Group Number Insured Name Patient Relationship to Insured Coverage Start Date Coverage End Date [employer] OF [place] [address] [place] [id number] MONTY GATES Self - patient is the insured Medical (General) History Medical History History ICD Code Denies AK,DM,CVA,Lung disease,renal dise ase Hypothyroidism Colonoscopy 12/[address] [facility] with [address]. Fair s--1 tubular adenoma Shingles 10/2016--on right thigh Right eye problems--seeing a n opthamologist--keeping the right pupil dilated as of now GERD Sleep apnea, but not requiring a CPAP as yet Surgical History Surgery Date(Month/Year) Bunionectomy on the left foot
== END 2025-01-27 10:36 | disposition home or self-care (01) ==
LOC: HO.HPS 10:03
PROVIDERS: PCP Internal Medicine; Visit Provider Hospitalist
DX: J41.1 Mucopurulent chronic bronchitis (principal); R05.3 Chronic cough; R06.09 Other forms of dyspnea; R91.8 Other nonspecific abnormal finding of lung field
CPT/HCPCS: 99214; G2211

== ENCOUNTER → 2025-01-27 10:03 | Outpatient (BNVA) | payer MEDICARE, SELFPAY | PROVIDERS: PCP Internal Medicine; Visit Provider Hospitalist | DX: K21.9 Gastro-esophageal reflux disease without esophagitis (principal); J44.1 Chronic obstructive pulmonary disease with (acute) exacerbation; R06.00 Dyspnea, unspecified; R91.8 Other nonspecific abnormal finding of lung field; R05.3 Chronic cough | CPT/HCPCS: 99212 ==

== ENCOUNTER 2025-03-11 07:36 | Outpatient (REF) | payer MEDICARE, SELFPAY ==
[2025-03-11 09:25] LABS: Alanine Aminotransferase 18 U/L (0-31); Albumin Level 4.2 g/dL (3.5-5.0); Alkaline Phosphatase 54 U/L (39-117); Anion Gap 13 (12-20); Aspartate Amino Transferase 28 U/L (5-31); Blood Urea Nitrogen 14 mg/dL (9-16); Calcium 9.7 mg/dL (8.4-10.2); Carbon Dioxide 25 mmol/L (22-29); Chloride 110 mmol/L (96-108); Estimated Glomerular Filt Rate 47; Potassium 4.8 mmol/L (3.3-5.1); Sodium 143 mmol/L (135-145); Total Protein 6.6 g/dL (6.5-8.0)
[2025-03-11 09:29] LABS: Thyroid Stimulating Hormone 1.26 uIU/mL (0.32-4.0)
== END 2025-03-11 07:37 | disposition home or self-care (01) ==
LOC: HO.LAB 07:36
PROVIDERS: Visit Provider Internal Medicine
DX: I10 Essential (primary) hypertension (principal); E03.9 Hypothyroidism, unspecified; J44.9 Chronic obstructive pulmonary disease, unspecified; Z84.1 Family history of disorders of kidney and ureter
CPT/HCPCS: 36415; 80053; 84443

== ENCOUNTER 2025-04-22 14:02 | Outpatient (REF) | payer MEDICARE, SELFPAY ==
--- OUTSIDE RECORDS SUMMARY | 2025-04-22 15:42 | XMS_ITS | Encounter Summary ---
Author Organization [facility] Address [address] [place] [address] Phone Care Team Providers Care Cylinder Press Operator Helper Name Role Phone Michelle Milian BRIDGE BUILDER Primary Care Provider + Encounter Details Date Type Department Care Team (Late st Contact Info) Description 05/22/2022 Procedure Pass [facility] Endoscopy Admitting Dept Virtual Department [address] [place] [address] Social History Tobacco Use Types Packs/Day Years Used Date Smoking Tobacco: Every Day Cigarettes 1 25 Smokeless Tobacco: Never Alcohol Use Standard Drinks/Week Comments Never 0 (1 standard drink = 0.6 oz pur e alcohol) Comments Unknown Sex and Gender Information Value Date Recorded Sex Assigned at Not on file Legal Sex Female 2:47 PM EDT Gender Identity Not on file Sexual Orientation Not on file 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 It is not the complete legal health record.[facility]
--- OUTSIDE RECORDS SUMMARY | 2025-04-22 15:42 | XMS_ITS | Encounter Summary ---
Author Organization [facility] Address [address] [place] [address] Phone Care Team Providers Care Warehouse Picker Name Role Phone Michelle Milian LPN RN HOSPICE Primary Care Provider + Encounter Details Date Type Department Care Team (Late st Contact Info) Description 08/16/2022 Procedure Pass [place] Admitting Dept - Virtual Department [address] [place] [address] Social History Tobacco Use Types Packs/Day Years Used Date Smoking Tobacco: Former Cigarettes 1 25 1 08/02/1996 - 06/02/2022 Smokeless Tobacco: Never Alcohol Use Standard Drinks/Week Comments Never 0 (1 standard drink = 0.6 oz pur e alcohol) Intimate Partner Violence Answer Date R ecorded Are you denied basic needs s uch as food, clothing, or medical care? No 08/16/2022 In the past 12 months have y ou been in a relationship with a person who hurts, threatens, or tries to control you? No 08/16/2022 Are you denied basic needs s uch as food, clothing, or medical care? No 08/16/2022 In the past 12 months have y ou been in a relationship with a person who hurts, threatens, or tries to control you? No 08/16/2022 Comments No Sex and Gender Information Value Date Recorded [...] on filedocumented in this encounter Care Teams Warehouse Picker Relationship Specialty Start Date End Date Michelle Milian NP [address] [place] [id number] PCP - General Family Medicine 04/02/22 documented as of this encounter Additional Source Comments The information contained in this document represents components of the legal health record. It is not the complete legal health record.[facility]
--- OUTSIDE RECORDS SUMMARY | 2025-04-22 15:42 | XMS_ITS | Encounter Summary ---
Author Organization [facility] Address [address] [place] [address] Phone Care Team Providers Care Broadcast Systems Engineer Name Role Phone Michelle Milian MEDICAL RECORD CODER Primary Care Provider + Encounter Details Date Type Department Care Team (Late st Contact Info) Description 04/17/2022 Procedure Pass [facility] Endoscopy Admitting Dept Virtual Department [address] [place] [address] Social History Tobacco Use Types Packs/Day Years [...] on filedocumented in this encounter Care Teams Broadcast Systems Engineer Relationship Specialty Start Date End Date Michelle Milian NP [address] [place] [address] PCP - General Family Medicine 04/02/22 documented as of this encounter Additional Source Comments The information contained in this document represents components of the legal health record. It is not the complete legal health record.[facility]
--- OUTSIDE RECORDS SUMMARY | 2025-04-22 15:42 | XMS_ITS | Clinical Summary ---
Author Organization [facility] Address [address] [facility] [address] [place] [address] Phone Care Team Providers Care Music Worker Name Role Phone Michelle Milian NP Primary Care Provider + Allergies Active Allergy Reactions Criticality Noted Date Comments Tetanus And Diphther. Tox (Pf) Hives 04/02 Medications levothyroxine (SYNTHROID, LEVOTHROID) 88 MCG tablet Take 88 mcg by mouth daily. 02/12/2022 Active docusate sodium (COLACE) 100 MG capsule Take 1 capsule (100 mg total) by mouth 2 (two) times a day. 60 capsule 6 08/16/2022 Active VENTOLIN HFA 90 mcg/actuation inhaler INHALE 1 PUFF BY MOUTH EVERY 4 HOURS NEEDED FOR WHEEZING 09/10/2022 Active Active Problems Problem Noted Date Diagnosed Date Postoperative state 09/14/2022 Plantar fasciitis 08/03/2022 Tendonitis, Achilles, right 08/03/2022 Pain in right foot 08/03/2022 Flat foot 08/03/2022 Equinus deformity of both feet 08/03/2022 Chest pain 06/04/2022 Assessment & Plan (06/04/2022 9:22 AM EST): She does complain of chest pain they do not like angina pectoris. But because of her risk factors and's history of smoking and active symptoms of chest pain or shortness of breath we will do an echocardiogram and a stress test to exclude coronary artery disease and ischemia. Abnormal electrocardiogram 06/04/2022 Assessment & Plan (06/04/2022 9:20 AM EST): Patient is going for surgery and she was found to have abnormal electrocardiogram today also in our office electrocardiogram shows sinus rhythm with old anterolateral OK. We will proceed with a stress test and an echocardiogram. Pre-operative cardiovascular examination Assessment & Plan (06/04/2022 9:21 AM EST): Patient was scheduled to have paraesophageal hernia surgery. Patient was found to have an abnormal electrocardiogram which showed old anterolateral OK. Patient also has symptoms of chest pain and shortness of breath. We will schedule her for a stress test and depending on the stress test for evaluation of ischemia and coronary artery disease. We will also do an echocardiogram if time permits for LV wall motion abnormality. Dyspnea on effort 06/04/2022 Assessment & Plan (06/04/2022 9:22 AM EST): Her dyspnea is most likely because of her COPD and smoking. But we will check her for left ventricular wall motion there is no fluid overload on examination today Smoker 06/04/2022 Assessment & Plan (06/04/2022 9:24 AM EST): He is currently smoking about a pack or half a pack a day depending on the day I advised her to quit smoking she will talk to her PCP about smoking cessation cessation and seek the help. Paraesophageal hernia 04/02/2022 Assessment & Plan (05/29/2022 12:14 PM EST): This is a 66-year-old lady who has symptomatic paraesophageal hernia with nausea vomiting regurgitation of food and epigastric pain. She had endoscopy that showed distal esophageal esophagitis and a 7 cm hiatal hernia. She was unable to have any meaningful information obtained from a manometry as the catheter was unable to be placed in the stomach secondary to the paraesophageal hernia. Patient has a barium swallow that shows at least one third of the stomach in the chest. Patient is having difficulty with the symptoms and would really like to undergo paraesophageal hernia repair. The patient is a smoker and I recommend that she quit smoking. Given the patient's symptoms I will plan to perform this procedure while she is smoking but I have let the patient know that she has significant perioperative complications because of her smoking. Patient has risk of poor healing and increased infection rate as well as possibility of recurrence of paraesophageal hernia secondary to pulmonary complications that can happen from smoking. The patient is willing to take these risks as she cannot take the symptoms that she is experiencing from the paraesophageal hernia. I have ordered preoperative blood work and an EKG and chest x-ray. I have discussed risk benefits and alternatives with the patient. We will schedule this procedure for sometime the next couple weeks. Patient will follow- up with me 2 weeks following the procedure. Assessment & Plan (04/02/2022 3:06 PM EDT): This is a 66-year-old lady who has had dysphagia for about 1 years timeframe. She underwent a manometry about a month ago which showed a moderate to large paraesophageal hernia that is likely causing her symptoms. The patient has not had a gastroenterology consultation or an endoscopy as of yet. I have ordered a gastroenterology consultation to obtain an endoscopy for further evaluation of the esophagus and the stomach. The patient will also need a manometry to determine the lower esophageal sphincter basal pressures and relaxation prior to attempting any repair of the paraesophageal hernia. The patient is also on methotrexate for occasional bleeding of both eyes. She will need clearance from her oracle fusion developer to come off this methotrexate for couple of weeks before and after the procedure as well as to stop the Celebrex that she is on daily. I will also need a medical clearance from her primary care doctor in order for the patient to undergo laparoscopic paraesophageal hernia repair with or without fundoplication. The patient is a current smoker which increases her risk of perioperative complications and poor healing. I have discussed the importance of the patient quitting smoking prior to surgery. She will work on quitting smoking prior to surgery. Smoking cessation was performed during this visit. I spent 57 minutes with this patient which included documentation. I also personally reviewed the referral notes from her primary care doctor and the barium swallow reading from an outside facility. Gastroesophageal reflux disease 04/02/2022 Family History Medical History Relation Comments Colon cancer Father Relation Status Comments Brother Alive Father Mother Sibling 1 Alive Sibling 2 Alive Sister 1 Alive Sister 2 Alive Sister 3 Alive Sister 4 Alive Social History Tobacco Use Types Packs/Day Years Used Date Smoking Tobacco: Former Cigarettes 1 25 1 08/02/1996 - 06/02/2022 Smokeless Tobacco: Never Tobacco Cessation:Counseling Given: Not Answered Alcohol Use Standard Drinks/Week Comments Never 0 (1 standard drink = 0.6 oz pur e alcohol) Education Answer Date Recorded Are you interested in more education? Not on robbie e 11/17/2022 Are you concerned about learning? Not on file 11/17/2022 No 11/17/2022 No 11/17/2022 Digital Access Answer Date Recorded No 12/18/2022 No 12/18/2022 Reliable internet access at home? Not on file 12/18/2022 Device with a working camera? Not on file Intimate Partner Violence Answer Date R ecorded [...] Not on file Not on robbie e Last Filed Vital Signs Vital Sign Reading Time Taken Comments Blood Pressure 128/74 09/14/2022 11:05 AM EST Pulse 70 09/14/2022 11:05 AM EST Temperature 36.4 C (97.5 F) 09/14/2022 11:05 AM EST Respiratory Rate 24 08/16/2022 11:15 AM EST Oxygen Saturation 97% 09/14/2022 11:05 AM EST Inhaled Oxygen Concentration - - Weight 99.3 kg (219 lb) 08/08/2022 4:02 PM EST Height 177.8 cm (5' 10 ) 08/08/2022 4:02 PM EST Body Mass Index 31.42 08/08/2022 4:02 PM EST Plan of Treatment Health Maintenance Due Date Last Done Comments LIPID PANEL 1956 TSH LEVEL 1956 DEPRESSION SCREENING 1968 SMOKING Hx and SMOKELESS TOBACCO SCREENING 1969 HEPATITIS C SCREENING 1974 MAMMOGRAM 1996 COLOGUARD 2001 COLONOSCOPY 2001 COLORECTAL CANCER SCREENING 2001 FIT TEST 2001 FOBT 2001 SIGMOIDOSCOPY 2001 VIRTUAL COLONOSCOPY 2001 PNEUMOCOCCAL VACCINES (50+ years) (1 of 1 - PCV) 2006 ZOSTER VACCINES (1 of 2) 2006 OSTEOPOROSIS SCREENING INITIAL (ONE-TIME) 2021 INFLUENZA VACCINE (#1) 2025 , 06/07/2021, 05/12/2020, Additional history exists COVID-19 VACCINE ( - 2024- season) 2025 09/17/2020, 09/17/2020, 08/20/2020, Additional history exists SCREENING FOR DIABETES 05/30/2025 05/30/2022 RSV VACCINE (1 - 1-dose 75+ series) 2031 HEPATITIS A VACCINES Aged Out No long er eligible based on patient's age to complete this topic HIB VACCINES Aged Out No longer eligi ble based on patient's age to complete this topic MENINGOCOCCAL VACCINES (ACWY) Aged Out No longer eligible based on patient's age to complete this topic MENINGOCOCCAL VACCINES (B) Aged Out N o longer eligible based on patient's age to complete this topic Medical Devices Not on file Insurance [facility] & B [facility] PART A & B Member Subscriber Plan / Payer (Ef fective 2021-Present) Name:Shikha Mcdonough Member ID:[id number] Relation to Subscriber:Self Name:Shikha Mcdonough Subscriber ID:[id number] Payer ID:[id number] Group ID:Not on file Type:Medicare Address: [facility] [employer] [facility] [address] [place] [address] [place] MED[place] PART A & B [facility] MEDICARE PART A & B [facility] A & B [facility] A & B [place] & B [facility] A & [place] [id number] [place] [id number] [place] [id number] [place] [address] [place] [address] Advance Directives For more information, please contact: [phone] (9AM - 5PM [facility]/[facility], Saturday-Saturday) * Full Code (Latest Code Status on File) Date Activated Date Inactivated Comments 08/16/2022 7:24 AM Question Answer Comments Code Status Confirmed With: Patient Care Teams Music Worker Relationship Specialty Start Date End Date Michelle Milian NP [address] [place] [id number] PCP - General Family Medicine 04/02/22 Additional Source Comments The information contained in this document represents components of the legal health record. It is not the complete legal health record.[facility]
--- OUTSIDE RECORDS SUMMARY | 2025-04-22 15:42 | XMS_ITS | Patient Health Record ---
Author Organization [facility] Address [address] [place] [address] Care Team Providers Care Ecotherapist Name Role Phone Michelle Milian CNP Primary Care Provider Unavail able Adonay Bell [phone] Allergies Allergen (clinical drug ingredient) Drug/Non Drug [...] Problem Status W/U Status Risk Notes Problem [id number] Encounter for screening for malignant neoplasm of colon (Z12.11) Active confirmed Problem [id number] Gastroesophageal reflux disease, esophagitis presence not specified (K21.9) Active confirmed Plan Of Treatment Future Test Test Name Order Date UPPER GI ENDOSCOPY 12/18/2016 COLONOSCOPY 12/18/2016 Insurance Providers Payer Name Payer Address Payer Phone Subscriber Number Group Number Insured Name Patient Relationship to Insured Coverage Start Date Coverage End Date MED[place]ARE OF [place] [address] [place] [id number] MONTY GATES Self - patient is the insured Medical (General) History Medical History History ICD Code Denies [place],DM,CVA,Lung disease,renal dise ase Hypothyroidism Colonoscopy 12/2002 at [facility] with Dr. Fair s--1 tubular adenoma Shingles 10/2016--on right thigh Right eye problems--seeing a n opthamologist--keeping the right pupil dilated as of now GERD Sleep apnea, but not requiring a CPAP as yet Surgical History Surgery Date(Month/Year) Bunionectomy on the left foot
== END 2025-04-22 14:03 | disposition home or self-care (01) ==
LOC: HO.MAMMO 14:02
PROVIDERS: PCP Internal Medicine; Visit Provider Internal Medicine
DX: Z12.31 Encounter for screening mammogram for malignant neoplasm of breast (principal)
CPT/HCPCS: 77063; 77067

== ENCOUNTER → 2025-04-22 14:30 | Outpatient (BNV) | payer MEDICARE, SELFPAY | PROVIDERS: PCP Internal Medicine; Visit Provider Internal Medicine | DX: Z12.31 Encounter for screening mammogram for malignant neoplasm of breast (principal) | CPT/HCPCS: 77063; 77067 ==

== ENCOUNTER 2025-05-25 13:11 | Outpatient (REF) | payer MEDICARE, SELFPAY ==
--- NOTE | ~2025-05-25 | MM_ITS ---
EXAMINATION(S): MM DIAGNOSTIC DIGITAL BREAST TOMOSYNTHESIS, RIGHT CLINICAL INFORMATION: Callback from screening for right breast asymmetry retroareolar middle depth on the MLO view. COMPARISON: Comparison made to multiple prior, most recent April 22, 2025, and most remote March 01, 2017. TECHNIQUE: Digital breast tomosynthesis is performed in full field ML 90 degrees along with computer-aided detection (CAD). Synthesized 2D images are generated from the tomosynthesis. Spot compression tomosynthesis were obtained. FINDINGS: BREAST COMPOSITION: There are scattered areas of fibroglandular density. RIGHT BREAST: Previously suggested asymmetry seen on the MLO view is pliable with spot compression; on today's images, local parenchyma is similar to multiple prior studies as far back as 2016 and most likely represented overlapping fibroglandular breast tissue. MM/MM tomosynthesis added views R IMPRESSION: RIGHT BREAST: Negative, no mammographic evidence of malignancy. Normal interval follow-up is recommended in 12 months. ASSESSMENT: BI-RADS: Category 1: Negative RECOMMENDATION: 1 year F/U Results were provided to the patient at time of visit by the technologist. This patient's information was entered into a reminder system with a target due date for their next mammogram. Electronically signed by: Donn Wayne MD 05/25/2025 04:57 PM TAISHA ZHANG
--- OUTSIDE RECORDS SUMMARY | 2025-05-25 16:08 | XMS_ITS | Encounter Summary ---
Author Organization [facility] Address [address] [facility] [address] [place] [address] Phone Care Team Providers Care Automatic Dispenser Mechanic Name Role Phone Michelle Milian BAIT PACKER Primary Care Provider + Encounter Details Date Type Department Care Team (Late st Contact Info) Description 04/17/2022 Procedure Pass [facility] Endoscopy Admitting Dept Virtual Department [address] [place] [address] Social History Tobacco Use Types Packs/Day Years [...] on filedocumented in this encounter Care Teams Automatic Dispenser Mechanic Relationship Specialty Start Date End Date Michelle Milian NP [address] [place] [address] PCP - General Family Medicine 04/02/22 documented as of this encounter Additional Source Comments The information contained in this document represents components of the legal health record. It is not the complete legal health record.[facility]
--- OUTSIDE RECORDS SUMMARY | 2025-05-25 16:08 | XMS_ITS | Encounter Summary ---
Author Organization [facility] Address [address] [facility] [address] [place] [address] Phone Care Team Providers Care Engraver Tender Name Role Phone Michelle Milian AUTO SERVICE MECHANIC Primary Care Provider + Encounter Details Date Type Department Care Team (Late st Contact Info) Description 05/22/2022 Procedure Pass [facility] Endoscopy Admitting Dept Virtual Department [address] [place] [address] Social History Tobacco Use Types Packs/Day Years [...] on filedocumented in this encounter Care Teams Engraver Tender Relationship Specialty Start Date End Date Michelle Milian NP [address] [place] [address] PCP - General Family Medicine 04/02/22 documented as of this encounter Additional Source Comments The information contained in this document represents components of the legal health record. It is not the complete legal health record.[facility]
--- OUTSIDE RECORDS SUMMARY | 2025-05-25 16:08 | XMS_ITS | Clinical Summary ---
Author Organization [facility] Address [address] [facility] [address] [place] [address] Phone Care Team Providers Care Slasher Hand Name Role Phone Michelle Milian NP Primary [...] electrocardiogram shows sinus rhythm with old anterolateral NC. We will proceed with a stress test and an echocardiogram. Pre-operative cardiovascular examination Assessment & Plan (06/04/2022 9:21 AM EST): Patient was scheduled to have paraesophageal hernia surgery. Patient was found to have an abnormal electrocardiogram which showed old anterolateral NC. Patient also has symptoms of chest pain [...] eyes. She will need clearance from her grain mixer to come off this methotrexate for couple [...] topic Medical Devices Not on file Insurance [facility] A & B [place] PART A & B [facility] & B [facility] A & B [facility] PART [facility] & B [place] & B [facility] PART A & [place] [id number] [place] [id number] [place] [id number] [place] [address] [place] [address] Advance Directives For more information, please contact: [phone] (9AM - 5PM [place]/[facility], Saturday-Saturday) * Full Code (Latest Code Status on File) Date Activated Date Inactivated Comments 08/16/2022 7:24 AM Question Answer Comments Code Status Confirmed With: Patient Care Teams Slasher Hand Relationship Specialty Start Date End Date Michelle Milian NP [address] [place] [address] PCP - General Family Medicine 04/02/22 Additional Source Comments The information contained in this document represents components of the legal health record. It is not the complete legal health record.[facility]
--- OUTSIDE RECORDS SUMMARY | 2025-05-25 16:08 | XMS_ITS | Encounter Summary ---
Author Organization [facility] Address [address] [facility] [address] [place] [address] Phone Care Team Providers Care Mattress Packer Name Role Phone Michelle Milian SECURE SOFTWARE ASSESSOR Primary Care Provider + Encounter Details Date Type Department Care Team (Late st Contact Info) Description 08/16/2022 Procedure Pass [place] Admitting Dept - Virtual Department [address] [place] [address] Social History Tobacco Use Types Packs/Day Years [...] on filedocumented in this encounter Care Teams Mattress Packer Relationship Specialty Start Date End Date Michelle Milian NP [address] [place] [id number] PCP - General Family Medicine 04/02/22 documented as of this encounter Additional Source Comments The information contained in this document represents components of the legal health record. It is not the complete legal health record.[facility]
--- OUTSIDE RECORDS SUMMARY | 2025-05-25 16:08 | XMS_ITS | Patient Health Record ---
Author Organization [facility] Address [address] [place] [address] Care Team Providers Care Electronic Engineering Technician Name Role Phone Michelle Milian CNP Primary Care Provider Unavail able Adonay Bell [phone] Allergies Allergen (clinical drug ingredient) Drug/Non Drug Allergy documented on EMR Reaction Allergy Type Onset Date Status Tetanus Unknown Drug Allergy Active Reason For Referral No Information Medications Medication SIG (Take, Route, Frequency, Duration) Notes Start Date End Date Status Cyclopentolate HCl 2 % Ophthalmic; Duration: 25 Active Pantoprazole Sodium 40 MG Oral; Duration: 30 Active Levothyroxine Sodium 112 MCG 1 [...] Problem Status W/U Status Risk Notes Problem Screening for malignant neoplasm of colon (271988988) Encounter for screening for malignant neoplasm of colon (Z12.11) Active confirmed Problem Gastroesophageal reflux disease (148479173) Gastroesophageal reflux disease, esophagitis presence not specified (K21.9) Active confirmed Plan Of Treatment Future Test Test Name Order Date UPPER GI ENDOSCOPY 12/18/2016 COLONOSCOPY 12/18/2016 Insurance Providers Payer Name Payer Address Payer Phone Subscriber Number Group Number Insured Name Patient Relationship to Insured Coverage Start Date Coverage End Date MEDICARE OF [place] [address] [place] [address] [phone] [id number] MONTY MCDONOUGH Self - patient is the insured Medical (General) History Medical History History ICD Code Denies ID,DM,CVA,Lung disease,renal dise ase Hypothyroidism Colonoscopy 12/2002 at [facility] with Dr. Fair s--1 tubular adenoma Shingles 10/2016--on right thigh Right eye problems--seeing a n opthamologist--keeping the right pupil dilated as of now GERD Sleep apnea, but not requiring a CPAP as yet Surgical History Surgery Date(Month/Year) Bunionectomy on the left foot
== END 2025-05-25 13:12 | disposition home or self-care (01) ==
LOC: HO.MAMMO 13:11
PROVIDERS: PCP Internal Medicine; Visit Provider Internal Medicine
DX: N64.89 Other specified disorders of breast (principal)
CPT/HCPCS: 77061; 77065

== ENCOUNTER → 2025-05-25 13:30 | Outpatient (BNV) | payer MEDICARE, SELFPAY | PROVIDERS: PCP Internal Medicine; Visit Provider Radiology Body Imaging | DX: R92.8 Other abnormal and inconclusive findings on diagnostic imaging of breast (principal) | CPT/HCPCS: 77065; G0279 ==

== ENCOUNTER 2025-06-23 09:51 | Outpatient (REF) | payer MEDICARE, SELFPAY ==
--- OUTSIDE RECORDS SUMMARY | 2025-06-23 11:03 | XMS_ITS | Encounter Summary ---
Author Organization [facility] Address [address] [facility] [address] [place] [address] Phone Care Team Providers Care Highway Engineer Name Role Phone Michelle Milian CHILD ADVOCATE Primary Care Provider + Encounter Details Date Type Department Care Team (Late st Contact Info) Description 05/22/2022 Procedure Pass [facility] Endoscopy Admitting Dept Virtual Department [address] [place] [address] Social History Tobacco Use Types Packs/Day Years [...] on filedocumented in this encounter Care Teams Highway Engineer Relationship Specialty Start Date End Date Michelle Milian NP [address] [place] [address] PCP - General Family Medicine 04/02/22 documented as of this encounter Additional Source Comments The information contained in this document represents components of the legal health record. It is not the complete legal health record.[facility]
--- OUTSIDE RECORDS SUMMARY | 2025-06-23 11:03 | XMS_ITS | Encounter Summary ---
Author Organization [facility] Address [address] [facility] [address] [place] [address] Phone Care Team Providers Care Customer Account Manager Name Role Phone Michelle Milian TELEPHONE MAINTAINER Primary Care Provider + Encounter Details Date Type Department Care Team (Late st Contact Info) Description 08/16/2022 Procedure Pass [place] Admitting Dept - Virtual Department [address] [place] [address] Social History Tobacco Use Types Packs/Day Years [...] on filedocumented in this encounter Care Teams Customer Account Manager Relationship Specialty Start Date End Date Michelle Milian NP [address] [place] [id number] PCP - General Family Medicine 04/02/22 documented as of this encounter Additional Source Comments The information contained in this document represents components of the legal health record. It is not the complete legal health record.[facility]
--- OUTSIDE RECORDS SUMMARY | 2025-06-23 11:03 | XMS_ITS | Encounter Summary ---
Author Organization [facility] Address [address] [facility] [address] [place] [address] Phone Care Team Providers Care Retail Marketing Manager Name Role Phone Michelle Milian SHEET METAL ERECTOR Primary Care Provider + Encounter Details Date Type Department Care Team (Late st Contact Info) Description 04/17/2022 Procedure Pass [facility] Endoscopy Admitting Dept Virtual Department [address] [place] [address] Social History Tobacco Use Types Packs/Day Years [...] on filedocumented in this encounter Care Teams Retail Marketing Manager Relationship Specialty Start Date End Date Michelle Milian NP [address] [place] [address] PCP - General Family Medicine 04/02/22 documented as of this encounter Additional Source Comments The information contained in this document represents components of the legal health record. It is not the complete legal health record.[facility]
--- OUTSIDE RECORDS SUMMARY | 2025-06-23 11:03 | XMS_ITS | Clinical Summary ---
Author Organization [facility] Address [address] [place] [address] Phone Care Team Providers Care Geothermal Technician Name Role Phone Michelle Milian NP Primary [...] electrocardiogram shows sinus rhythm with old anterolateral HI. We will proceed with a stress test and an echocardiogram. Pre-operative cardiovascular examination Assessment & Plan (06/04/2022 9:21 AM EST): Patient was scheduled to have paraesophageal hernia surgery. Patient was found to have an abnormal electrocardiogram which showed old anterolateral HI. Patient also has symptoms of chest pain [...] eyes. She will need clearance from her exploration engineer to come off this methotrexate for couple [...] topic Medical Devices Not on file Insurance [facility] & B [facility] & B [place] PART A & B [facility] PART A & [facility] & [facility] & [place] PART A & [facility] & [place] MEDICARE PART [place] & [place] [id number] [place] [address] [place] [address] [place] [address] [place] [address] Advance Directives For more information, please contact: [phone] (9AM - 5PM [place], Saturday-Saturday) * Full Code (Latest Code Status on File) Date Activated Date Inactivated Comments 08/16/2022 7:24 AM Question Answer Comments Code Status Confirmed With: Patient Care Teams Geothermal Technician Relationship Specialty Start Date End Date Michelle Milian NP [address] [place] [id number] PCP - General Family Medicine 04/02/22 Additional Source Comments The information contained in this document represents components of the legal health record. It is not the complete legal health record.[facility]
[2025-06-23 11:26] LABS: Alanine Aminotransferase 24 U/L (0-31); Albumin Level 4.4 g/dL (3.5-5.0); Alkaline Phosphatase 63 U/L (39-117); Anion Gap 10 (12-20); Aspartate Amino Transferase 26 U/L (5-31); Blood Urea Nitrogen 19 mg/dL (9-16); Calcium 9.8 mg/dL (8.4-10.2); Carbon Dioxide 27 mmol/L (22-29); Chloride 109 mmol/L (96-108); Cholesterol 205 mg/dL (<200); Estimated Glomerular Filt Rate 47; HDL Cholesterol 63 mg/dL (>40); Potassium 4.4 mmol/L (3.3-5.1); Sodium 142 mmol/L (135-145); Total Protein 6.6 g/dL (6.5-8.0); Triglycerides 100 mg/dL (<150)
== END 2025-06-23 09:52 | disposition home or self-care (01) ==
LOC: HO.LAB 09:51
PROVIDERS: PCP Internal Medicine; Visit Provider Internal Medicine
DX: I10 Essential (primary) hypertension (principal); J44.9 Chronic obstructive pulmonary disease, unspecified; E03.9 Hypothyroidism, unspecified; R25.2 Cramp and spasm; Z68.34 Body mass index [BMI] 34.0-34.9, adult
CPT/HCPCS: 36415; 80053; 80061